=== PATIENT | male | born 1960 | race Caucasian/White ===

== ENCOUNTER 2021-12-26 10:00 | Outpatient (CLI) | payer BC, SELFPAY ==
--- NOTE | 2021-12-26 10:15 | CRLHL7_ITS ---
For Patients: As a result of the Century Cures Act, medical imaging exams and procedure reports are released immediately into your electronic medical record. You may view this report before your referring provider. If you have questions, please contact your health care provider. INDICATION : Nausea and vomiting. TECHNIQUE : Biphasic upper GI with single and double-contrast FINDINGS : Diminished primary stripping wave with tertiary contractions. Small sliding-type hiatal hernia. Gastroesophageal junction appears normal. Visualized spontaneous gastroesophageal reflux. No visualized mass or stricture. Stomach and duodenal C-loop are normal. IMPRESSION : 1. Diminished primary stripping wave with tertiary contractions. 2. Gastroesophageal reflux. 3. Small sliding-type hiatal hernia. Dictated by Mark Turner MD @ 12/26/2021 11:12:57 AM (Electronically Signed)
== END 2021-12-26 10:01 | disposition home or self-care (01) ==
LOC: RAD 10:02
PROVIDERS: PCP Family Medicine; Visit Provider Internal Medicine Gastroenterology
DX: R11.2 Nausea with vomiting, unspecified (principal); K21.9 Gastro-esophageal reflux disease without esophagitis; K44.9 Diaphragmatic hernia without obstruction or gangrene
CPT/HCPCS: 74246

== ENCOUNTER 2022-07-21 16:42 | Outpatient (CLI) | payer BC, SELFPAY | END 2022-07-21 16:43 | disposition home or self-care (01) | LOC: AMB 07-22 10:06 | PROVIDERS: PCP Family Medicine; Visit Provider Family Medicine | DX: R41.82 Altered mental status, unspecified (principal) | CPT/HCPCS: A0425; A0426; A0427 ==

== ENCOUNTER 2022-07-21 17:24 | Emergency (ER) | payer BC, SELFPAY ==
[2022-07-21] VITALS (14 sets, daily range): BP systolic 97–128; BP diastolic 42–72; PULSE 106–119; RESP 20–42; TEMP 36.4; O2SAT 91–96; BMI 28.2
--- NOTE | 2022-07-21 17:35 | ED.GENADULT ---
HPI - General Adult General Time Seen by Provider: 17:30 Date Seen: 07/21/22 Chief complaint: Weakness Stated complaint: Dehydration Time Seen by Provider: 07/21/22 17:46 Source: patient, family, EMS, RN notes reviewed and old records reviewed Mode of arrival: EMS Limitations: altered mental status History of Present Illness HPI narrative: 62-year-old male who comes in today by EMS for weakness. Patient is normally alert and talkative, in the emergency department does not answer questions although does mumble in open his eyes, brother provides most of the history. Patient is in assisted living and communicates regularly with his brother. At the beginning of the week, patient said that he was having fevers and not feeling well. Patient's brother is not heard from him for couple of days, went to check on him today and found him lethargic with dry cracked lips. Patient lives in assisted living and nursing there reported the patient was last checked on Friday. Patient is not able to provide any other history. It sounds like there is a history of hematuria and BPH. Related Data Allergies Allergy/AdvReac Type Severity Reaction Status Date / Time No Known Drug Allergies Allergy Verified 07/21/22 17:25 PFSH PFS Social History Smoking Status: Never smoker Do you use any of these nicotine containing products: None Second hand tobacco smoke exposure: No How often do you have a drink containing alcohol: never How often do you have six or more drinks on one occasion: Never AUDIT-C Alcohol total score: 0 Non-prescribed substance use: denies use service: No Exam Narrative: Exam Narrative: General: Well-developed and well-nourished, no acute distress Head: Atraumatic and normocephalic Eyes: Pupils are equal reactive, extraocular motions intact, conjunctiva clear ENT: External nose and ears are normal, posterior pharynx without erythema or exudate Neck: No midline cervical tenderness, full spontaneous range of motion the neck, trachea midline, no adenopathy Heart: Tachycardic but regular no murmurs or thrills Lungs: Clear to auscultation bilaterally without wheezes or crackles Abdomen: Soft, nontender, distended with active bowel sounds Musculoskeletal: No tenderness, deformity, or edema Neurologic: Awake, alert, answers yes no questions, follows commands and moves all extremities Psych: Mood and affect are appropriate Skin: No rashes Const: Vital Signs, click to edit/add: Vital Signs - 24 hr 07/21/22 17:25 07/21/22 18:01 07/21/22 18:05 Temperature 97.5 F L Pulse Rate 114 H 119 H Pulse Rate [Pulse Oximeter] 118 H Respiratory Rate 42 H Blood Pressure Blood Pressure [Le ft Upper Arm] 97/42 L Pulse Oximetry 95 96 96 Oxygen Delivery Me thod Room Air 07/21/22 18:13 07/21/22 18:58 07/21/22 18:59 Temperature Pulse Rate 118 H 110 H Pulse Rate [Pulse Oximeter] Respiratory Rate Blood Pressure 111/64 120/70 Blood Pressure [Le ft Upper Arm] Pulse Oximetry 96 94 Oxygen Delivery Me thod 07/21/22 19:00 07/21/22 19:21 07/21/22 19:41 Temperature Pulse Rate 110 H Pulse Rate [Pulse Oximeter] Respiratory Rate 28 H Blood Pressure 121/71 111/61 Blood Pressure [Le ft Upper Arm] Pulse Oximetry 94 Oxygen Delivery Me thod 07/21/22 19:54 07/21/22 20:00 07/21/22 20:01 Temperature Pulse Rate 109 H 110 H 111 H Pulse Rate [Pulse Oximeter] Respiratory Rate Blood Pressure 115/65 Blood Pressure [Le ft Upper Arm] Pulse Oximetry 95 96 94 Oxygen Delivery Me thod 07/21/22 20:24 Temperature Pulse Rate 106 H Pulse Rate [Pulse Oximeter] Respiratory Rate Blood Pressure 121/69 Blood Pressure [Le ft Upper Arm] Pulse Oximetry 95 Oxygen Delivery Me thod Course Course Hospital Course: Patient seen and examined, prior records reviewed. Patient presents by EMS for weakness, reported fevers. On exam here, tachycardic and hypotensive, afebrile. Small abrasion on the right forehead, head CT is ordered although no definite fall and looks like this may be to to patient laying on the right side. Abdominal distension but no tenderness or guarding. No rashes, no joint swelling. Concern for sepsis of unknowns source, given history of BPH urine is a strong possibility. Cannot exclude COVID infection or pneumonia, other intra-abdominal source of infection possible though no tenderness. IV fluid bolus and Zosyn are initiated. Chest x-ray ordered. Consider CT scan abdomen and pelvis if no source of infection is found based on initial testing. Head CT ordered due to altered mentation. Reevaluation(s) Reevaluation #1: Labs so far independently interpreted by me demonstrates elevated lactate, mild hypocalcemia, elevated AST and ALT with normal bilirubin and normal alkaline phosphatase. Remaining labs are pending, CT scan is pending. Time: 18:07 Reevaluation #2: Blood pressure improved but patient does remain tachycardic. Labs independently interpreted by me demonstrate elevated white blood cell count, low platelets. These both may be related to infection or sepsis, however cannot exclude hematologic malignancy. CT scan of the chest independently interpreted by me demonstrates atelectasis but no acute infiltrates, no hemothorax or pneumothorax. CT scan of the abdomen and pelvis and Bentyl interpreted by me demonstrates some areas of infarction of the spleen, also bladder wall thickening and prostatic enlargement. Time: 19:14 Reevaluation #3: Radiology interpretation of head CT demonstrates small hyperdensity of the left superior frontal robe, cortical lesion versus subarachnoid hemorrhage as well as a low-density lesion in the right cerebral hemisphere likely representing subacute infarct. Time: 19:52 Additional Reevaluation(s): 20:[address] Laboy, hospitalist. Recommends transfer due to possible need for complicated anticoagulation with intracranial bleed plus acute infarcts (brain and spleen). 20:[address] Gifford, neurology at [facility]. Recommends consultation with Neurosurgery. 21:[address] Arana, neurosurgery at [facility] who recommends patient be transferred to Neuro ICU. Care discussed with Dr. Pedersen, bankruptcy paralegal who accepts the patient for transfer Updated patient and family. Vital Signs Vital signs: Initial Vital Signs Temperature 97.5 F L 07/21/22 17:25 Temperature Source Temporal Artery Scan 07/21/22 17:25 Pulse Rate 118 H 07/21/22 17:25 Pulse Rhythm 07/21/22 17:25 Respiratory Rate 42 H 07/21/22 17:25 Blood Pressure 97/42 L 07/21/22 17:25 Blood Pressure Mean 60 07/21/22 17:25 Blood Pressure Position Supine 07/21/22 17:25 Pulse Oximetry 95 07/21/22 17:25 Oxygen Delivery Method 07/21/22 17:25 Vital Signs Temperature 97.5 F L 07/21/22 17:25 Pulse Rate 118 H 07/21/22 17:25 Respiratory Rate 42 H 07/21/22 17:25 Blood Pressure 97/42 L 07/21/22 17:25 Pulse Oximetry 95 07/21/22 17:25 Oxygen Delivery Method 07/21/22 17:25 Temperature 97.5 F L 07/21/22 17:25 Pulse Rate 106 H 07/21/22 20:24 Respiratory Rate 28 H 07/21/22 19:21 Blood Pressure 121/69 07/21/22 20:24 Pulse Oximetry 95 07/21/22 20:24 Oxygen Delivery Method 07/21/22 17:25 Medical Decision Making Lab Data Labs: Lab Results 07/21/22 07/21/22 07/21/22 Range/Units 17:28 17:28 17:28 WBC 29.31 H* (4.50-11.00) K/uL RBC 5.47 (4.30-5.90) m/uL Hgb 15.0 (13.5-17.5) gm/dL Hct 45.0 (37.0-53.0) % MCV 82 (80-100) fL MCH 27 (26-34) pg MCHC 33 (32-36) gm/dL RDW Coeff of Macie 14.1 (11.5-15.5) % Plt Count 88 L (140-440) K/uL Neut % (Auto) 88.5 H (42.0-72.0) % Lymph % (Auto) 2.1 L (20-44) % [place] % (Auto) 5.6 (0.0-11.0) % Eos % (Auto) 0.0 (0.0-7.0) % Baso % (Auto) 0.1 (0.0-3.0) % Neut # (Auto) 25.90 H (1.7-7.0) K/uL Lymph # (Auto) 0.60 L (0.90-2.90) K/uL [place] # (Auto) 1.60 H (0.00-0.90) K/UL Eos # (Auto) 0.00 (0.00-0.50) K/uL Baso # (Auto) 0.00 (0.00-0.30) K/uL VBG pH (7.32-7.43) VBG pCO2 (40-50) mmHG VBG pO2 (25-47) mmHG VBG HCO3 (21-28) mmol/L Sodium 133 L (135-149) mmol/L Potassium 4.0 (3.6-5.1) mmol/L Chloride 103 (96-114) mmol/L Carbon Dioxide 21 (20-32) mmol/L BUN 34 H (7-30) mg/dL Creatinine 1.0 (0.5-1.5) mg/dL Estimated Creat Clear 70.00 Estimated GFR 86 ml/min Glucose 124 H (60-115) mg/dL Lactate 2.8 H (0.5-1.9) mmol/L Calcium 7.9 L (8.4-10.6) mg/dL Total Bilirubin 1.5 (0.1-1.5) mg/dL Direct Bilirubin 0.3 (0.0-0.5) mg/dL AST 93 H (12-35) U/L ALT 53 H (4-50) U/L Alkaline Phosphatase 102 (40-150) U/L Total Creatine Kinase (54-186) U/L Total Protein 7.1 (6.0-8.3) g/dL Albumin 3.2 L (3.3-5.0) g/dL Lipase 232 (23-300) U/L Urine Color (Yellow) Urine Appearance (Clear) Urine pH (5.0-8.5) Ur Specific [place] (1.000-1.030) Urine Protein (Negative) Urine Glucose (UA) (Negative) Urine Ketones (Negative) Urine Blood (Negative) Urine Nitrite (Negative) Urine Bilirubin (Negative) Urine Urobilinogen (0.2-1.0) Ur Leukocyte Esterase (Negative) Urine RBC (0-2) Urine WBC (0-5) Ur Squamous Epith Cells (None-Few) Urine Bacteria (None) SARS-CoV-2 (PCR) (Negative) Influenza Type A (PCR) (Negative) Influenza Type B (PCR) (Negative) 07/21/22 07/21/22 07/21/22 Range/Units 17:28 17:34 17:39 WBC (4.50-11.00) K/uL RBC (4.30-5.90) m/uL Hgb (13.5-17.5) gm/dL Hct (37.0-53.0) % MCV (80-100) fL MCH (26-34) pg MCHC (32-36) gm/dL RDW Coeff of Macie (11.5-15.5) % Plt Count (140-440) K/uL Neut % (Auto) (42.0-72.0) % Lymph % (Auto) (20-44) % [place] % (Auto) (0.0-11.0) % Eos % (Auto) (0.0-7.0) % Baso % (Auto) (0.0-3.0) % Neut # (Auto) (1.7-7.0) K/uL Lymph # (Auto) (0.90-2.90) K/uL [place] # (Auto) (0.00-0.90) K/UL Eos # (Auto) (0.00-0.50) K/uL Baso # (Auto) (0.00-0.30) K/uL VBG pH 7.413 (7.32-7.43) VBG pCO2 36 L (40-50) mmHG VBG pO2 29.1 (25-47) mmHG VBG HCO3 23 (21-28) mmol/L Sodium (135-149) mmol/L Potassium (3.6-5.1) mmol/L Chloride (96-114) mmol/L Carbon Dioxide (20-32) mmol/L BUN (7-30) mg/dL Creatinine (0.5-1.5) mg/dL Estimated Creat Clear Estimated GFR ml/min Glucose (60-115) mg/dL Lactate (0.5-1.9) mmol/L Calcium (8.4-10.6) mg/dL Total Bilirubin (0.1-1.5) mg/dL Direct Bilirubin (0.0-0.5) mg/dL AST (12-35) U/L ALT (4-50) U/L Alkaline Phosphatase (40-150) U/L Total Creatine Kinase 197 H (54-186) U/L Total Protein (6.0-8.3) g/dL Albumin (3.3-5.0) g/dL Lipase (23-300) U/L Urine Color (Yellow) Urine Appearance (Clear) Urine pH (5.0-8.5) Ur Specific [place] (1.000-1.030) Urine Protein (Negative) Urine Glucose (UA) (Negative) Urine Ketones (Negative) Urine Blood (Negative) Urine Nitrite (Negative) Urine Bilirubin (Negative) Urine Urobilinogen (0.2-1.0) Ur Leukocyte Esterase (Negative) Urine RBC (0-2) Urine WBC (0-5) Ur Squamous Epith Cells (None-Few) Urine Bacteria (None) SARS-CoV-2 (PCR) Negative SARS-CoV-2 (Negative) Influenza Type A (PCR) Negative PCR FLU A (Negative) Influenza Type B (PCR) Negative PCR FLU B (Negative) 07/21/22 Range/Units 19:50 WBC (4.50-11.00) K/uL RBC (4.30-5.90) m/uL Hgb (13.5-17.5) gm/dL Hct (37.0-53.0) % MCV (80-100) fL MCH (26-34) pg MCHC (32-36) gm/dL RDW Coeff of Macie (11.5-15.5) % Plt Count (140-440) K/uL Neut % (Auto) (42.0-72.0) % Lymph % (Auto) (20-44) % [place] % (Auto) (0.0-11.0) % Eos % (Auto) (0.0-7.0) % Baso % (Auto) (0.0-3.0) % Neut # (Auto) (1.7-7.0) K/uL Lymph # (Auto) (0.90-2.90) K/uL [place] # (Auto) (0.00-0.90) K/UL Eos # (Auto) (0.00-0.50) K/uL Baso # (Auto) (0.00-0.30) K/uL VBG pH (7.32-7.43) VBG pCO2 (40-50) mmHG VBG pO2 (25-47) mmHG VBG HCO3 (21-28) mmol/L Sodium (135-149) mmol/L Potassium (3.6-5.1) mmol/L Chloride (96-114) mmol/L Carbon Dioxide (20-32) mmol/L BUN (7-30) mg/dL Creatinine (0.5-1.5) mg/dL Estimated Creat Clear Estimated GFR ml/min Glucose (60-115) mg/dL Lactate (0.5-1.9) mmol/L Calcium (8.4-10.6) mg/dL Total Bilirubin (0.1-1.5) mg/dL Direct Bilirubin (0.0-0.5) mg/dL AST (12-35) U/L ALT (4-50) U/L Alkaline Phosphatase (40-150) U/L Total Creatine Kinase (54-186) U/L Total Protein (6.0-8.3) g/dL Albumin (3.3-5.0) g/dL Lipase (23-300) U/L Urine Color Yellow (Yellow) Urine Appearance Clear (Clear) Urine pH 5.5 (5.0-8.5) Ur Specific [place] 1.010 (1.000-1.030) Urine Protein Negative (Negative) Urine Glucose (UA) Negative (Negative) Urine Ketones Negative (Negative) Urine Blood 3+ A (Negative) Urine Nitrite Negative (Negative) Urine Bilirubin Negative (Negative) Urine Urobilinogen 0.2 (0.2-1.0) Ur Leukocyte Esterase Negative (Negative) Urine RBC 5-10 A (0-2) Urine WBC 2-5 (0-5) Ur Squamous Epith Cells None (None-Few) Urine Bacteria None (None) SARS-CoV-2 (PCR) (Negative) Influenza Type A (PCR) (Negative) Influenza Type B (PCR) (Negative) Imaging Data CT Chest/Ab/Pelvis: Attestation: I have reviewed the pertinent imaging results. Radiologist's impression: IMPRESSION: 1. Mild bilateral ground-glass opacities are of uncertain significance. This may represent sequela of motion artifact/subsegmental atelectasis or infectious/inflammatory change in the appropriate clinical setting. 2. New multifocal splenic infarction. 3. Prostatomegaly and bladder wall thickening, as before. 4. Mild left pelvic lymphadenopathy is unchanged. CT scan - head: Attestation: I have reviewed the pertinent imaging results. Radiologist's impression: IMPRESSION: 1. Tiny hyperdensity along the cortex of the superior left frontal lobe, cortically based lesion versus tiny amount of subarachnoid hemorrhage. Follow-up CT in several hours versus MRI recommended. 2. Low-density lesion in the right cerebellar hemisphere. Suspect subacute infarct. This could also be evaluated with MRI. ECG Data Attestation: I personally reviewed and interpreted this ECG as follows: Prior ECG tracings: not available for review Interpretation: Independently interpreted by me performed at 5:40 p.m. demonstrates sinus tachycardia rate 117, nonspecific ST changes, no acute ischemic changes, normal axis, normal intervals, QTC 446, HI 160. No prior for comparison. Critical Care Time Critical Care Time Critical Care Time: Yes (Sepsis, multiple fluid boluses and antibiotics) Attestation: The patient required my highest level preparedness to intervene emergently and I personally spent this critical care time directly and personally managing the patient. This critical care time included: Obtaining a history; Examining the patient; Pulse oximetry; Ordering and reviewing of studies; Arranging urgent treatment with development of a management plan; Evaluation of patients response to treatment; Frequent reassessment discussions with other providers. This critical care time was performed to assess and manage the high probability of imminent life-threatening deterioration that could result in multiorgan failure. It was exclusive of separate billable procedures and treating other patients and teaching time. Total Critical Care Time in Minutes: 200 Discharge Plan Discharge Clinical Impression: Sepsis, Splenic infarction, CVA (cerebral vascular accident) Patient Disposition: [facility] Activity Level: Activity as Tolerated Stand Alone Forms: Appticles Info Instructions
--- NOTE | 2022-07-21 17:39 | CRLHL7_ITS ---
For Patients: As a result of the Century Cures Act, medical imaging exams and procedure reports are released immediately into your electronic medical record. You may view this report before your referring provider. If you have questions, please contact your health care provider. INDICATION: Altered mental status, sepsis TECHNIQUE: Head CT without contrast. COMPARISON: None FINDINGS: CSF spaces: Within normal limits for age. Brain parenchyma and extra-axial spaces: 20 mm low-density lesion in the right cerebellar hemisphere image 27 series 2 and image 70 series 9. Subtle 7 mm cortical hyperdensity in the superior left frontal lobe image 47 series 2 and image 41 series 9. It is also possible this is a tiny amount of subarachnoid hemorrhage. Skull base and calvarium: The visualized paranasal sinuses and mastoid air cells demonstrate no acute or significant findings. The visualized orbits are grossly unremarkable. No skull fractures. IMPRESSION: 1. Tiny hyperdensity along the cortex of the superior left frontal lobe, cortically based lesion versus tiny amount of subarachnoid hemorrhage. Follow-up CT in several hours versus MRI recommended. 2. Low-density lesion in the right cerebellar hemisphere. Suspect subacute infarct. This could also be evaluated with MRI. Please note that all CT scans at this facility use dose modulation, iterative reconstruction, and/or weight-based dosing when appropriate to reduce radiation dose to as low as reasonably achievable. Dictated by Alonso Mehta MD @ 07/21/2022 7:50:18 PM (Electronically Signed)
[2022-07-21] MEDS: 0.9 % SODIUM CHLORIDE 1000 ml 1,000 ML IV ×2 (17:40→19:55)
[2022-07-21 17:44] LABS: Lactate* 2.8 mmol/L (0.5-1.9)
[2022-07-21 17:47] LABS: Basophils Percent Auto 0.1 % (0.0-3.0); Immature Granulocytes Pct Auto 3.7 %; Lymphocytes Percent Auto 2.1 % (20-44); Mean Corpuscular HGB Conc 33 gm/dL (32-36); Mean Corpuscular Hemoglobin 27 pg (26-34); Mean Corpuscular Volume 82 fL (80-100); Monocytes Percent Auto 5.6 % (0.0-11.0); Neutrophils Percent Auto 88.5 % (42.0-72.0); Platelet Count* 88 K/uL (140-440); RDW Coefficient of Variation % 14.1 % (11.5-15.5); Red Blood Count 5.47 m/uL (4.30-5.90)
[2022-07-21 17:55] LABS: Chloride* 103 mmol/L (96-114)
[2022-07-21 17:56] LABS: Albumin* 3.2 g/dL (3.3-5.0); Sodium* 133 mmol/L (135-149)
[2022-07-21 17:58] LABS: Carbon Dioxide* 21 mmol/L (20-32); Estimated Glomerular Filt Rate 86 ml/min
[2022-07-21 17:59] LABS: Alanine Aminotransferase* 53 U/L (4-50); Alkaline Phosphatase* 102 U/L (40-150); Aspartate Amino Transferase* 93 U/L (12-35); Bilirubin Direct* 0.3 mg/dL (0.0-0.5); Bilirubin Total* 1.5 mg/dL (0.1-1.5); Blood Urea Nitrogen* 34 mg/dL (7-30); Calcium* 7.9 mg/dL (8.4-10.6); Glucose* 124 mg/dL (60-115); Lipase* 232 U/L (23-300); Total Protein* 7.1 g/dL (6.0-8.3)
--- NOTE | 2022-07-21 18:03 | CRLHL7_ITS ---
For Patients: As a result of the Century Cures Act, medical imaging exams and procedure reports are released immediately into your electronic medical record. You may view this report before your referring provider. If you have questions, please contact your health care provider. INDICATION: Altered mental status. Sepsis. TECHNIQUE: CT chest, abdomen and pelvis acquired with 85 cc of Isovue 370 IV contrast. COMPARISON: CT abdomen and pelvis 07/17/2019. FINDINGS: CHEST: Cardiovascular structures: Heart size is normal. Thoracic aorta and main pulmonary artery are normal in caliber. Mediastinum and max: No pathologic lymphadenopathy. Small hiatal hernia. Lungs: No pneumothorax. Central airways are patent. Mild motion artifact with mild bilateral ground-glass opacities. Lungs are otherwise clear. Pleura and pericardium: No pleural or pericardial effusions. Chest wall and axilla: Unremarkable. ABDOMEN AND PELVIS: Liver: Stable left hepatic lobe cyst. Spleen: Multifocal wedge shaped low-attenuation foci in the spleen consistent with infarction. No perisplenic fluid collection. Pancreas: Unremarkable. Gallbladder and bile ducts: Unremarkable. Kidneys: Contrast material in the renal collecting systems degrades evaluation for urolithiasis. Low-density foci most consistent with incidental simple cysts are unchanged. Bilateral kidneys are otherwise unremarkable. Adrenal glands: Unremarkable. GI tract: No bowel obstruction or focal inflammatory change involving the GI tract. Vascular structures: No abdominal aortic aneurysm. Lymph nodes: Mild left pelvic/internal iliac lymphadenopathy, for example as seen on image 241 of series 3 is unchanged. No progressive lymphadenopathy. Pelvic Organs: Circumferential bladder wall thickening is similar in appearance. Prostatomegaly, as before. Bones: Degenerative changes of the spine and pelvis. No acute or suspicious osseous abnormality. IMPRESSION: 1. Mild bilateral ground-glass opacities are of uncertain significance. This may represent sequela of motion artifact/subsegmental atelectasis or infectious/inflammatory change in the appropriate clinical setting. 2. New multifocal splenic infarction. 3. Prostatomegaly and bladder wall thickening, as before. 4. Mild left pelvic lymphadenopathy is unchanged. Dictated by Catracho Hernandez MD @ 07/21/2022 8:00:57 PM Please note that all CT scans at this facility use dose modulation, iterative reconstruction, and/or weight-based dosing when appropriate to reduce radiation dose to as low as reasonably achievable. Dictated by: Catracho Hernandez MD @ 07/21/2022 20:01:18 (Electronically Signed)
[2022-07-21 18:08] LABS: White Blood Count* 29.31 K/uL (4.50-11.00)
[2022-07-21 18:16] LABS: Creatine Kinase* 197 U/L (54-186)
[2022-07-21] MEDS: PIPERACILLIN/TAZOBACTAM 3.375 GM in 0.9 % SODIUM CHLORIDE Mini-bag 100 ML IVPB (19:04)
[2022-07-21 19:40] LABS: HCO3 VBG 23 mmol/L (21-28); PCO2 VBG 36 mmHG (40-50); PO2 VBG 29.1 mmHG (25-47); pH VBG 7.413 (7.32-7.43)
[2022-07-21 19:45] LABS: PCR FLU A Negative PCR FLU A (Negative); PCR FLU B Negative PCR FLU B (Negative); SARS PCR* Negative SARS-CoV-2 (Negative)
[2022-07-21 19:47] LABS: Slide Review Reflex No
[2022-07-21 20:03] LABS: Appearance Urine Clear (Clear); Bilirubin Urine Negative (Negative); Blood Urine 3+ (Negative); Color Urine Yellow (Yellow); Glucose Urine Negative (Negative); Ketones Urine Negative (Negative); Leukocyte Esterase Urine Negative (Negative); Nitrite Urine Negative (Negative); Protein Urine Negative (Negative); Urobilinogen Urine 0.2 (0.2-1.0); pH Urine 5.5 (5.0-8.5)
--- NOTE | 2022-07-21 20:07 | ED.NURSE ---
catheter placed, no complications, 600cc output on insertion- urine sent to lab.
--- NOTE | 2022-07-21 20:17 | CRLHL7_ITS ---
For Patients: As a result of the Century Cures Act, medical imaging exams and procedure reports are released immediately into your electronic medical record. You may view this report before your referring provider. If you have questions, please contact your health care provider. INDICATION: Calf pain. Splenic infarct. Acute CVA. TECHNIQUE: Ultrasound venous duplex bilateral lower extremity. Compression venous exam was performed using yusuf-scale, color Doppler, and spectral Doppler analysis. COMPARISON: None. FINDINGS: Deep veins: Sonographic imaging demonstrates the right common femoral, deep femoral, superficial femoral, popliteal, posterior tibial and the contralateral right common femoral veins to be fully compressible with normal color Doppler blood flow. Superficial veins: Greater saphenous vein is fully compressible. No popliteal cyst. IMPRESSION: Normal bilateral lower extremity venous ultrasound, no sign of deep venous thrombosis. Dictated by Angel Roe MD @ 07/21/2022 9:37:40 PM (Electronically Signed)
--- NOTE | 2022-07-21 20:21 | ED.NURSE ---
report off to Yu LEWIS
--- NOTE | 2022-07-21 21:51 | ED.NURSE ---
This nurse called report to [facility] nurse, pt transferring to Neuro ICU Room 2888. All paperwork in triplicate, called dispatch, ride paged out to hospital. Brother of pt informed of visiting hours at [facility]. Pt aware of plan of care as well.
== END 2022-07-21 22:10 | disposition short-term general hospital (02) ==
PROVIDERS: Emergency Provider Family Medicine; PCP Family Medicine
DX: D73.5 Infarction of spleen (principal); A41.9 Sepsis, unspecified organism; I63.9 Cerebral infarction, unspecified
CPT/HCPCS: 36415; 70450; 71260; 74177; 80048; 80076; 81001; 82550; 82803; 83605; 83690; 85025; 87040; 87186; 87631; 93005; 93970; 96365; 96366; 99285; 99291; 99292; J2543; J3370; J7030; J7120; Q9967

== ENCOUNTER 2022-07-21 22:00 | Outpatient (CLI) | payer BC, SELFPAY | END 2022-07-21 22:01 | disposition home or self-care (01) | LOC: AMB 07-23 10:05 | PROVIDERS: PCP Family Medicine; Visit Provider Family Medicine | DX: A41.9 Sepsis, unspecified organism (principal); S06.30AA Unspecified focal traumatic brain injury with loss of consciousness status unknown, initial encounter; R53.1 Weakness | CPT/HCPCS: A0425; A0426; A0427 ==

== ENCOUNTER 2023-10-05 17:37 | Emergency (ER) | payer BC, SELFPAY ==
[2023-10-05] VITALS (8 sets, daily range): BP systolic 118–138; BP diastolic 66–75; PULSE 85–98; RESP 14–18; TEMP 36.7–37; O2SAT 93–97; BMI 30.2
--- NOTE | 2023-10-05 18:52 | CT_ITS ---
Patient: SANTHOSH AARON Facility:?[facility] Patient ID:?[id number] Site Patient ID:?[id number]. Site :?[id number] Study:?CT-Chest W/ 75CC ISOVUE 370-10/05/2023 7:59:23 PM Ordering Physician:SIMÓN Final Report: INDICATION: Lower sternal skin abscess, recent extraction of thoracic wire. TECHNIQUE: CT chest was acquired with 75 cc Isovue 370 IV contrast. COMPARISON: CT chest, abdomen, and pelvis 07/21/2022. FINDINGS: Lungs and pleura: No suspicious nodules or infiltrates. No pleural effusions, pleural thickening, or pneumothorax. Heart and vasculature: Heart size is normal. Thoracic aorta and pulmonary artery are normal in caliber.Median sternotomy with mitral valve replacement. No pericardial effusion. Lymph nodes/mediastinum: No mediastinal, hilar, or axillary adenopathy. Chest wall: Non-rim enhancing fluid and inflammatory changes within the skin and subcutaneous fat overlying the lower sternum. There is a focal fusiform fluid collection within the skin, compatible with an abscess measuring 2.2 x 1.3 x 4.2 cm with adjacent skin thickening. Non-loculated fluid extends down to the skin sternum without evidence for extension into the anterior mediastinum. Epicardial pacing wires. Upper abdomen: Hepatic steatosis. Bones: Unremarkable for age. IMPRESSION: 1. Small, 2.2 x 1.3 x 4.2 cm, skin abscess with underlying phlegmonous change in the subcutaneous fat overlying and extending down to the lower sternum the setting of prior median sternotomy. No evidence for mediastinal extension; however, osteomyelitis can not be excluded on this exam. 2. Hepatic steatosis. Please note that all CT scans at this facility use dose modulation, iterative reconstruction, and/or weight-based dosing when appropriate to reduce radiation dose to as low as reasonably achievable. Dictated by Giovanni Moyer MD @ 10/05/2023 8:26:33 PM Signed by:?Giovanni Moyer MD @10/05/2023 8:26:33 PM (Electronic Signature)
--- OUTSIDE RECORDS SUMMARY | 2023-10-05 19:05 | XMS_ITS | Data Portability ---
Author Name Unknown Address [address] [place] [address] Phone [phone] Organization [facility] Address [address] [place] [address] Care Team Providers Care Load Dispatcher Name Role Phone SANTHOSH DUVAL Primary Care Provider [phone] Assessment No assessment recorded. Plan of Treatment Reminders Order Date Submit Date Provider Last Modified By Organization Details Last Modified Time Details Appointments None recorded. Lab urinalysis , dipstick 2021 022 [email or web address] 1 Not available 12:29:20 Referral None recorded. Procedures None recorded. Surgeries None recorded. Imaging None recorded. Medication Orders None recorded. Patient TargetsNo targets recorded. Patient InstructionsNo instructions recorded. Reason for Referral None Reported. Results Created Date Observation Date Name Description Value Unit Range Abnormal Flag LastModifiedBy Organization Detail LastModifiedTime 11/17/19 22 11/16/2021 urina lysis , dipst ick Color-Status Yellow Not Available [facility] [address], [place], [address], 11/16/2021 12:16:25 11/17/19 22 11/16/2021 urina lysis , dipst ick Clarity-Stat us Clear Not Available [facility] [address], [place], [address], 11/16/2021 12:16:25 11/17/19 22 11/16/2021 urina lysis , dipst ick Glucose-Stat us Negati ve Not Available [facility] [address], [place], [address], 11/16/2021 12:16:25 11/17/19 22 11/16/2021 urina lysis , dipst ick Bilirubin-St atus Negati ve Not Available [facility] [address], [place], [address], 11/16/2021 12:16:25 11/17/19 22 11/16/2021 urina lysis , dipst ick Ketones-Stat us Negati ve Not Available [facility] [address], [place], [address], 11/16/2021 12:16:25 11/17/19 22 11/16/2021 urina lysis , dipst ick Sp Dorris-Stat us 1.020 Not Available [facility] [address], [place], [address], 11/16/2021 12:16:25 11/17/19 22 11/16/2021 urina lysis , dipst ick pH-Status 6.0 Not Available [facility] [address], [place], [address], 11/16/2021 12:16:25 11/17/19 22 11/16/2021 urina lysis , dipst ick Urobilinogen -Status 0.2 Not Available [facility] [address], [place], [address], 11/16/2021 12:16:25 11/17/19 22 11/16/2021 urina lysis , dipst ick Nitrates-Sta tus negati ve Not Available [facility] [address], [place], [address], 11/16/2021 12:16:25 11/17/19 22 11/16/2021 urina lysis , dipst ick Blood-Status Negati ve Not Available [facility] [address], [place], [address], 11/16/2021 12:16:25 11/17/19 22 11/16/2021 urina lysis , dipst ick Leuko-Status Negati ve Not Available [facility] [address], [place], [address], 11/16/2021 12:16:25 11/17/19 22 11/16/2021 urina lysis , dipst ick Specimen Type Voided Not Available [facility] [address], [place], [address], 11/16/2021 12:16:25 08/24/19 21 08/21/2020 measu remen t of post- voidi ng resid ual urine and/o r bladd er capac ity (PROC ) No observ ation record ed. Not Available 11/16/2021 13:11:52 09/07/19 22 09/03/2021 measu remen t of post- voidi ng resid ual urine and/o r bladd er capac ity (PROC ) No observ ation record ed. Not Available 11/16/2021 13:11:51 11/14/19 22 10/26/2021 CT, abdom en + pelvi s, w/o contr ast No observ ation record ed. Not Available 11/16/2021 13:11:51 Result Notes None recorded. Procedures Surgical History Date Name Laterality Status Provider Name and Address Organization Details Recorded Time tonsillectomy completed ANNA Hernandez - [facility] 11/16/2021 12:25:28 Imaging Results Imaging Date Name Status LastModified by Organ [facility] Details LastModified Time 08/21/2020 measurement of post-voiding residual urine and/or bladder capacity (PROC) completed [email or web address] Information not available 11/16/2021 13:11:52 09/03/2021 measurement of post-voiding residual urine and/or bladder capacity (PROC) completed [email or web address] Information not available 11/16/2021 13:11:51 10/26/2021 CT, abdomen + pelvis, w/o contrast completed Information not available 11/16/2021 13:11:51 Procedure Notes None recorded. Medical Equipment None Reported. Allergies No known drug allergies Medications Name Sig Start Date Stop Date Status Note LastModified by Organization Details LastModified Time cephalexin 500 mg capsule TAKE 1 CAPSULE (500 MG) BY MOUTH 2 TIMES DAILY FOR 7 DAYS. 11/16 completed Not Available Not Available Not Available paroxetine 30 mg tablet TAKE 2 TABLETS BY MOUTH EVERY MORNING active Not Available Not Available No t Available oxybutynin chloride ER 5 mg tablet,exte nded release 24 hr TAKE ONE TABLET BY MOUTH ONCE DAILY active Not Available Not Available No t Available clobetasol 0.05 % topical ointment APPLY TOPICALLY TO AFFECTED AREA(S) 2 TIMES DAILY. active Not Available Not Available No t Available finasteride 5 mg tablet TAKE ONE TABLET BY MOUTH EVERY MORNING active Not Available Not Available No t Available alfuzosin ER 10 mg tablet,exte nded release 24 hr TAKE 1 TABLET BY MOUTH ONCE DAILY WITH A MEAL. active Not Available Not Available No t Available Vitals Date Recorded Body height Body mass index (BMI) Body weight Provider Name and Address Organization Details Last Updated DateTime 11/16/2021 162.56 cm 31.1 kg/m2 20485.22 g ANNA Hernandez [facility] 11/16/2021 12:23:23 Social History Question Answer Notes LastModified by Organizat ion Details LastModified Time Tobacco Smoking Status Never Smoker ANNA Hernandez [facility] 11/16/2021 12:25:11 What Is Your Level Of Alcohol Consumption? None Information not available 11/16/2021 What Is Your Level Of Caffeine Consumption? Occasional Information not available 11/16/2021 What Was The Date Of Your Most Recent Tobacco Screening? 11/16/2021 Information not available 11/16/2021 Do You Use Any Illicit Or Recreational Drugs? No Information not available 11/16/2021 Has Tobacco Cessation Counseling Been Provided? No Information not available 11/16/2021 Do You Or Have You Ever Used Any Other Forms Of Tobacco Or Nicotine? No Information not available 11/16/2021 Sex: Male Functional Status None recorded. Mental Status None recorded. Family History Relationship Description Onset Age of this Age Resolved Age Notes Mother Family history of cancer leukemia Maternal Grandmother Family history of breast cancer Father Family history of diabetes mellitus Medical History Condition Response Sexually Transmitted Infection N Diabetes N Other Y Bleeding Disorder N High Blood Pressure N Kidney Stones N High Cholesterol N GERD/Acid Reflux Y Heart Disease N Cancer N Depression N Lung Disease N Past Encounters Encounter ID Performer Location Encounter Start Date Encounter Closed Date Diagnosis/Indication Diagnosis SNOMED-CT Code [id number] Julián Paulino MD [facility] [address] [place] [address] 11/16/2021 11:53:22 11/19/2021 13:00:23 Blood in urine 61110054 Recurrent urinary tract infection [id number] Large prostate [id number] Health Concerns Section Related Observation LastModified by Organization Detai ls LastModified Time None Recorded Concern Status LastModified by Organization Details LastModified Time None Recorded Advance Directives Directive None Recorded Payers Encounter Date Sequence Insurance Name Policy Number Policy Shoemaker Covered Member ID Shoemaker Member ID Guarantor Name 11/16/2021 1 [place] - [place]MO[place] [id number] Santhosh Sara Philip [id number] Santhosh A Tamera Notes Date Note Type Note Provider Name and Address Organization Details Recorded Time 11/16/2021 text/html HPI Notes: Mr. Philip is a very pleasant 61-year-old gentleman who follows with my partner, Dr. Anton, down in our [place] office. Patient has a long history of prostatomegaly, recurrent hematuria and recurrent urinary tract infections. Patient underwent a cystoscopy with clot evacuation in 2019. Over the course of the last few weeks patient developed another urinary tract infection and gross hematuria. Patient underwent a CT abdomen pelvis which noted some blood products within the bladder but otherwise no adverse pathology. Patient states that he was treated with an antibiotic which subsequently resolved his hematuria. Images from patient CT abdomen pelvis dated 10/26/2021 reviewed with patient and interpreted by me. Evidence of prostatic megaly and bladder wall thickening hyperdense material within the bladder lumen consistent with blood products. Benign-appearing cysts on the left renal unit but otherwise no upper tract abnormalities. Patient seen with his brother who provides some of the history. Julián Paulino MD [address], [place], [address], [facility] 11/16/2021 13:18:26
--- OUTSIDE RECORDS SUMMARY | 2023-10-05 19:05 | XMS_ITS | Clinical Summary ---
Author Name Unknown Organization [employer] [facility] Address [place], [place] [address] Care Team Providers Care Pathology Laboratory Technologist Name Role Phone Ajay Pink MD Primary Care Provider [phone] Dorothy Powell Unavailable Travis Lynch MD Unavailable Unavailable Allergies Active Allergy Reactions Criticality Noted Date Comments Cefazolin Rash 09/09/2022 Nafcillin Rash 09/09/2022 Also possible drug induced liver injury Medications Medication Sig Dispensed Refills Start Date End Date Status alfuzosin (UROXATRAL) 10 mg Sustained-Release tabletIndications: Benign prostatic hyperplasia with incomplete bladder emptying Take 1 Tablet (10 mg) by mouth once daily with a meal. 90 Tablet 3 01/16/2022 Active finasteride (PROSCAR) 5 mg tabletIndications: BPH without urinary obstruction Take 1 Tablet (5 mg) by mouth every morning. 90 Tablet 3 01/16/2022 Active oxybutynin XL (DITROPAN XL) 5 mg CR tabletIndications: Urinary urgency Take 1 Tablet (5 mg) by mouth once daily. 90 Tablet 3 01/16/2022 Active omeprazole (PRILOSEC) 20 mg Delayed-Release capsuleIndications :Gastroesophageal reflux disease, unspecified whether esophagitis present Take 1 Capsule (20 mg) by mouth once daily before a meal. Take 30-60 minutes before a meal/food once a day. 90 Capsule 3 05/19/2022 Active multivitamins-mine rals-lutein (Multivitamin 50 Plus) tab tablet Take 1 Tablet by mouth once daily. Active MAGNESIUM ORAL Take 1 Tablet by mouth once daily. Active CALCIUM ORAL Take 1 Tablet by mouth once daily. Active acetaminophen (TYLENOL) 325 mg tabletIndications: Pain Take 2 Tablets (650 mg) by mouth every 4 hours if needed for Pain or Temp>101.5F (38.6C). Max acetaminophen dose: 4000mg in 24 hrs. 0 09/10/2022 Active metoprolol tartrate (LOPRESSOR) 25 mg tabletIndications: HTN (hypertension) Take 1 Tablet (25 mg) by mouth two times daily. 0 09/10/2022 Active polyethylene glycol (MIRALAX; GLYCOLAX) 17 g per packet packetIndications: Constipation, unspecified constipation type Mix 17 g (1 Packet) in liquid then take by mouth once daily if needed for Constipation. 0 09/10/2022 Active torsemide (DEMADEX) 20 mg tabletIndications: Edema, unspecified type Take 1 Tablet (20 mg) by mouth once daily. 0 09/18/2022 Active warfarin (COUMADIN) 2 mg tabletIndications: S/P MVR (mitral valve replacement) 4 mg po on 09/18/2022, further dosing as per INR on 09/19/2022 0 09/18/2022 Active PARoxetine (PAXIL) 30 mg tabletIndications: Social anxiety disorder,Mixed obsessional thoughts and acts TAKE 2 TABLETS BY MOUTH EVERY MORNING 60 Tablet 11/05/2022 Active Active Problems Problem Noted Date Diagnosed Date Coag negative Staphylococcus bacteremia 08/19/19 23 Positive blood culture 08/18/2022 Fever 08/17/2022 At risk for healthcare associated infection 07/31 Shock liver 08/02/2022 Transaminitis 08/02/2022 At risk for infection 08/02/2022 S/P MVR (mitral valve replacement) 07/29/2022 Overview: MITRAL VALVE.[facility] MECHANICAL HEART VALVE SZ 27MM. REF: [id number]. SN:[id number]. IMPLANTED BY DR. 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 His PSA was 15 in 2012 and biopsy showed only inflammation. Screening for colon cancer 07/26/2018 Overview: He had a normal colonoscopy in 05/2015 in [place]. Next colonoscopy is due on 05/22/2025. Sensorineural hearing loss, bilateral 11/14/2017 Autism spectrum disorder 11/08/2017 Social anxiety disorder 10/13/2017 Mixed obsessional thoughts and acts 10/13/2017 BPH without urinary obstruction 10/13/2017 Seasonal allergic rhinitis due to pollen 018 Overview: Tree pollen. Acute embolic stroke On mechanically assisted ventilation Hemoptysis Massive hemoptysis Pneumomediastinum Pain ACP (advance care planning) Encounter for palliative care Resolved Problems Problem Noted Date Diagnosed Date Resolved Date Noise-induced hearing loss of both ears 10/13/2017 10/19/2019 Immunizations Name Administration Dates Next Due COVID-19 vaccine (iLive NTH[employer]ed [employer] 30mcg/0.3mL) 12YO+ PROMISE-SUCROSE PF, MDV 10/26/2021 COVID-19 vaccine (Eximia-xAdNTHosted Systems 30mcg/0.3mL) P F, MDV 10/07/2020,09/16/2020 Influenza RIV4 (Age 18+ Years) PRESERV FREE 07/03 Influenza, High-dose Quadrivalent Inactivated Tdap 08/16/2019 Family History Medical History Relation Name Comments Good Health Brother Diabetes type I Father Heart attack Father of this at 76 (smoker) Stroke Maternal Grandmother at 94 Heart Disease Mother s/p aortic norma ve replacement Leukemia Mother of this at age 80 Relation Name Status Comments Brother Father Maternal Grandmother Mother Social History Tobacco Use Types Packs/Day Years Used Date Smoking Tobacco: Never Smokeless Tobacco: Never Tobacco Cessation:Counseling Given: Yes Alcohol Use Standard Drinks/Week Comments No 0 (1 standard drink = 0.6 oz pur e alcohol) PHQ-2 Answer Date Recorded PHQ-2 TOTAL SCORE 0 01/16/2022 Social Connections Answer Date Recorded Frequency of Communication with Friends and Fami ly Not on file 10/31/2022 Financial Resource Strain Answer Date R ecorded Difficulty of Paying Living Expenses 3 10/26/2021 Difficulty of Paying Living Expenses Not on file 10/26/2021 Food Insecurity Answer Date Recorded Worried About Running Out of Food in the Last Ye ar 1 10/26/2021 Transportation Needs Answer Date Record ed Lack of Transportation (Medical) 1 10/26/2021 Housing Stability Answer Date Recorded Unable to Pay for Housing in the Last Year 1 10/26/2021 Sex and Gender Information Value Date Recorded Sex Assigned at Not on file Gender Identity Not on file Sexual Orientation Not on file Obstetrics History Last Filed Vital Signs Vital Sign Reading Time Taken Comments Blood Pressure 110/70 11/22/2022 2:03 PM CDT Pulse 73 11/22/2022 2:03 PM CDT Temperature 36.7 ??C (98 ??F) 09/18/2022 7:48 AM CDT Respiratory Rate 18 09/18/2022 7:48 AM CDT Oxygen Saturation 98% 11/22/2022 2:03 PM CDT Inhaled Oxygen Concentration - - Weight 71.5 kg (157 lb 9.6 oz) 11/22/2022 2:03 P M CDT Height 161.9 cm (5' 3.75) 11/22/2022 2:03 PM CD T Body Mass Index 27.26 11/22/2022 2:03 PM CDT Plan of Treatment Health Maintenance Due Date Last Done Comments Pneumococcal series for age 6-64 (1 of 2 - PCV) 1967 HIV for age 15-65 1976 Colonoscopy through age 75 2006 Zoster (shingles) series for age 50+ (1 of 2) 2011 Depression screening for age 12+ 01/16/2023 01/16/2022, 03/06/2021, 01/12/2020, Additional history exists COVID-19 vaccine series (2022-24 season) 2023 03/28/2022, 10/26/2021, 05/03/2021, Additional history exists BMI (ht and wt on same day) for age 18+ 11/23/2023 11/22/2022, 01/16/2022, 08/16/2019, Additional history exists Influenza for age 50-64 02/01/2024 07/21/2019 Lipids for age 45-75 07/22/2027 07/22/2022, 01/16/2022, 07/29/2018 Tetanus booster 08/15/2029 08/16/2019 Tdap Completed 08/16/2019 Hepatitis C screening for ag e 18-79 Completed 01/16/2022 Medical Devices Implanted Type Area Building Pressure Washer Device Identifier Shelf Expiration Date Model / Serial / Lot Valve Mitral 27mm [employer] - [id number] Implanted:Qty: 1 on 07/29/2022 by Jorge Parrish MD at [facility] N/A: Mitral Valve [facility] [employer] [facility] 04/17/2027 [id number] / [id number] / Procedures Procedure Name Priority Date/Time Associated Diagnosis Comments LIPID PANEL Early AM 07/22/2022 3:56 AM [employer] ANTI HCV Routine 01/16/2022 3:28 PM CDT Need for hepatitis C screening test from Last 3 Months or Most Recently Relevant to Health Maintenance Results * (ABNORMAL) Lipid Panel (07/22/2022 3:56 AM [employer]) CHOLESTEROL,TOTAL 97 mg/dL 023 4:47 AM [employer] [facility] Comment: Cholesterol, Total Reference Ranges Desirable <200 mg/dL Borderline 200-239 mg/dL High >=240 mg/dL TRIGLYCERIDES 297(H) <150 mg/dL 07/22/2022 4:47 AM [employer] [facility] HDL CHOLESTEROL 11(L) >40 mg/dL 4:47 AM [employer] [facility] NON-HDL CHOLESTEROL 86 <145 mg/dl 07/22/2022 4:47 AM [employer] [facility] CHOL/HDL RATIO 8.82(H) <4.50 07/22/2022 4:47 AM [employer] [facility] LDL CHOLESTEROL 27 <=130 mg/dL 07/22/2022 4:47 AM [employer] [facility] VLDL CHOLESTEROL 59 >30 mg/dL 07/22/19 4:47 AM [employer] [facility] PROVIDER ORDERED STATUS RANDOM 07/22/2022 4:47 AM [employer] [facility] Blood BLOOD SPECIMEN / Unknown Butterfly / Unknown 07/22/2022 3:56 AM [employer] 07/22/2022 4:11 AM [employer] Catracho Pedersen MD CHEMISTRY [facility] [address] [place] [address], * ANTI HCV (01/16/2022 3:28 PM CDT) Pathologist [facility] HEPATITIS C ANTIBODY Non-React rowdy Non-React rowdy 01/17/2022 2:29 AM CDT [facility] Comment:Antibodies to HCV no t detected; does not exclude the possibility of exposure to HCV. Blood BLOOD SPECIMEN / Unknown Venipuncture / Unknown 01/16/2022 3:28 PM CDT 01/16/2022 3:31 PM CDT Ajay Pink MD SEND OUTS [facility] [address] [place] [address], from Last 3 Months or Most Recently Relevant to Health Maintenance Advance Directives Documents on File Type Date Recorded Patient Manager Assembly Expl anation Healthcare Directive 10/16/2022 12:00 AM * Full Code (Latest Code Status on File) Date Activated Date Inactivated Comments 08/26/2022 3:44 PM 09/18/2022 2:11 PM With patient 's brother Question Answer Comments Code Status Discussion: Reviewed Preferences * Partial Code Date Activated Date Inactivated Comments 08/03/2022 2:21 PM 08/26/2022 3:44 PM Question Answer Comments Cardio Resuscitation: No Chest CompressionsNo De fibrillation/Cardioversion Ventilation: No Restrictions Drug Protocol: No Restrictions * Full Code Date Activated Date Inactivated Comments 07/22/2022 6:51 AM 08/03/2022 2:21 PM Question Answer Comments Code Status Discussion: Reviewed Preferences * Full Code Date Activated Date Inactivated Comments 07/21/2022 11:22 PM 07/22/2022 6:51 AM Question Answer Comments Code Status Discussion: Unable to Assess Preferences, Provider to review later Care Teams Pathology Laboratory Technologist Relationship Specialty Start Date End Date Ajay Pink MD [address] [place] [address] PCP - General Family Practice 10/06/17 Dorothy Powell AuD [address] [place] [address] Audiology 11/14/17 Travis Lynch MD [address] [place] [address] Family [facility] 11/22/22
[2023-10-05 19:10] LABS: Basophils Absolute Auto 0.07 K/uL (0.00-0.30); Basophils Percent Auto 0.7 % (0.0-3.0); Eosinophils Absolute Auto 0.26 K/uL (0.00-0.50); Eosinophils Percent Auto 2.7 % (0.0-7.0); Hematocrit 39.2 % (37.0-53.0); Hemoglobin* 12.8 gm/dL (13.5-17.5); Immature Granulocytes Abs Auto 0.18 K/uL (0.00-0.30); Immature Granulocytes Pct Auto 1.9 %; Lymphocytes Percent Auto 15.2 % (20-44); Mean Corpuscular HGB Conc 33 gm/dL (32-36); Mean Corpuscular Hemoglobin 27 pg (26-34); Mean Corpuscular Volume 84 fL (80-100); Monocytes Percent Auto 9.6 % (0.0-11.0); Neutrophils Absolute Auto 6.79 K/uL (1.7-7.0); Neutrophils Percent Auto 69.9 % (42.0-72.0); Platelet Count* 349 K/uL (140-440); RDW Coefficient of Variation % 14.4 % (11.5-15.5); Red Blood Count 4.68 m/uL (4.30-5.90); White Blood Count* 9.71 K/uL (4.50-11.00)
[2023-10-05 19:11] LABS: Lactate* 1.3 mmol/L (0.5-1.9)
[2023-10-05 19:14] LABS: Slide Review Reflex No
[2023-10-05 19:24] LABS: Chloride* 106 mmol/L (96-114); Sodium* 139 mmol/L (135-149)
[2023-10-05 19:25] LABS: Potassium* 4.3 mmol/L (3.6-5.1)
[2023-10-05 19:27] LABS: Est. Creatinine Clearance* 64.13; Estimated Glomerular Filt Rate 85 ml/min
[2023-10-05 19:28] LABS: Anion Gap 5 mEq/L (7-15); Blood Urea Nitrogen* 17 mg/dL (7-30); Calcium* 9.1 mg/dL (8.4-10.6); Carbon Dioxide* 28 mmol/L (20-32); Glucose* 107 mg/dL (60-115)
[2023-10-05 19:31] LABS: C Reactive Protein* 3.1 mg/dL (0.5-1.0)
[2023-10-05 19:35] LABS: Creatinine, Point-of-Care* 1.2 mg/dl (0.6-1.3)
--- NOTE | 2023-10-05 20:15 | ED.GENADULT ---
HPI - General Adult General Date Seen: 10/05/23 Chief complaint: Skin/Abscess/Foreign Body Stated complaint: Possible infected scar on chest Time Seen by Provider: 10/05/23 18:28 History of Present Illness HPI narrative: This is a pleasant 63-year-old male accompanied to the ER today by his brother with concern for an abscess and infection on his lower central cyst chest over the lower sternum. He has a complex past history dating back the past couple of years. 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 He underwent a mitral valve replacement at [facility] about a year ago. It sounds like his mitral valve surgery was complicated by postoperative infections of his chest tube drains and some of his hardware, he also had pancreatitis, acute renal injury requiring temporary renal replacement therapy, and liver failure. Most recent follow-up was with [facility] in October 2022. According to that note he had some skin irritation at his lower sternal border. This was apparently due to the temporary pacing wires that had been left in place during his hospitalization. It sounds like the pacing wires were shortened in clinic and the plan was to monitor and have him return if any signs of infection develop. According to his brother he has been doing well lately. He had a checkup at his a nursing facility on Friday at that point they noticed a small area of erythema on the anterior chest. His brother was with him and noticed a very small pink spot. In the intervening 2 days he is now has a roughly 2 x 3 cm area of fluid and fluctuance probably an abscess and fairly widespread area of erythema spreading across his anterior chest wall. Other than the signs of infection there he says he is feeling fine. No fevers. No body aches. No chills. No weakness. Related Data Home Medications Medication Instructions Recorded Confirmed clobetasol 0.05 % topical ointment topical 3XW 10/05/23 finasteride 5 mg tablet 5 mg PO DAILY 10/05/23 10/05/23 guaifenesin 600 mg tablet, 600 mg PO BID 10/05/23 10/05/23 extended release 12 hr (Mucus Relief ER) ketoconazole 2 % shampoo topical 2XW 10/05/23 magnesium oxide 400 mg (241.3 mg 400 mg PO DAILY 10/05/23 10/05/23 magnesium) tablet metoprolol tartrate 25 mg tablet 25 mg PO BID 10/05/23 10/05/23 omeprazole 20 mg capsule,delayed 20 mg PO DAILY 10/05/23 10/05/23 release oxybutynin chloride 5 mg 5 mg PO DAILY 10/05/23 10/05/23 tablet,extended release 24 hr paroxetine HCl 30 mg tablet 60 mg PO DAILY 10/05/23 10/05/23 polyethylene glycol 3350 17 17 g PO DAILY PRN constipation 10/05/23 10/05/23 gram/dose oral powder tamsulosin 0.4 mg capsule 0.4 mg PO DAILY 10/05/23 10/05/23 torsemide 10 mg tablet 10 mg PO DAILY 10/05/23 10/05/23 torsemide 20 mg tablet 20 mg PO DAILY 10/05/23 10/05/23 warfarin 1 mg tablet 1 mg PO 10/05/23 warfarin 2.5 mg tablet 2.5 mg PO DAILY 10/05/23 10/05/23 warfarin 3 mg tablet mg PO 10/05/23 warfarin 4 mg tablet 4 mg PO DAILY 10/05/23 10/05/23 warfarin 5 mg tablet 5 mg PO DAILY 10/05/23 10/05/23 Allergies Allergy/AdvReac Type Severity Reaction Status Date / Time No Known Drug Allergies Allergy Verified 07/21/22 17:25 [facility] Social History Smoking Status: Never smoker Do you use any of these nicotine containing products: None Second hand tobacco smoke exposure: No How often do you have a drink containing alcohol: never How often do you have six or more drinks on one occasion: Never AUDIT-C Alcohol total score: 0 Non-prescribed substance use: denies use service: No Exam Narrative: Exam Narrative: Constitutional: Appears well-developed and well-nourished. Alert. Quiet and allows his brother to provide most of his history. Brother is very attentive.. Non toxic. HENT: Head: Atraumatic. Nose: Nose normal. Mouth/Throat: Oral mucosa is clear and moist. no trismus. Pharynx normal. Tonsils symmetric. No tonsillar enlargement, erythema, or exudate. Eyes: Conjunctivae normal. EOM normal. Pupils equal, round, and reactive to light. No scleral icterus. Neck: Normal range of motion. Neck supple. No tracheal deviation present. Cardiovascular: Normal rate, regular rhythm. No gallop. No friction rub. No murmur heard. Symmetric radial artery pulses Pulmonary/Chest: Effort normal. No stridor. No respiratory distress. No wheezes. No rales. No rhonchi . There is an area of infection on the lower chest wall. In the central trust wall over the lower sternum just a cm or 2 proximal to his xiphoid there is a roughly 2 x 4 cm abscess under the skin. No drainage. Surrounding this there is significant induration and swelling and redness. A surrounding this there is also a band of redness spreading laterally on both sides roughly 10-14 cm total diameter from side to side and 3-4 cm cephalocaudal. No palpable crepitus. No upper abdominal tenderness. Abdominal: Soft. Bowel sounds normal. No distension. No mass. No tenderness. No rebound. No guarding. Musculoskeletal: RUE: Normal range of motion. No tenderness. No deformity LUE: Normal range of motion. No tenderness. No deformity RLE: Normal range of motion. No edema. No tenderness. No deformity LLE: Normal range of motion. No edema. No tenderness. No deformity Neurological: Alert and oriented to person, place, and time. Allows his brother to provide his history but is at baseline. Normal strength. CN II-VII intact. No sensory deficit. GCS eye subscore is 4. GCS verbal subscore is 5. GCS motor subscore is 6. Normal coordination Skin: Skin is warm and dry. No rash noted. No pallor. Normal capillary refill. Psychiatric: Normal mood. Normal affect. Const: Vital Signs, click to edit/add: Vital Signs - 24 hr 10/05/23 17:53 10/05/23 19:30 10/05/23 20:00 Temperature 98.1 F Pulse Rate 89 85 Pulse Rate [Right Pulse Oximeter] 87 Respiratory Rate 18 14 16 Blood Pressure 121/67 Blood Pressure [Ri ght Upper Arm] 118/68 Pulse Oximetry 97 97 97 Oxygen Delivery Me thod Room Air 10/05/23 20:31 Temperature Pulse Rate 88 Pulse Rate [Right Pulse Oximeter] Respiratory Rate 14 Blood Pressure 127/66 Blood Pressure [Ri ght Upper Arm] Pulse Oximetry 97 Oxygen Delivery Me thod Course Vital Signs Vital signs: Initial Vital Signs Temperature 98.1 F 10/05/23 17:53 Temperature Source Temporal Artery Scan 10/05/23 17:53 Pulse Rate 87 10/05/23 17:53 Pulse Rhythm Regular 10/05/23 17:53 Pulse Strength 3+ Normal 10/05/23 17:53 Respiratory Rate 18 10/05/23 17:53 Blood Pressure 118/68 10/05/23 17:53 Blood Pressure Mean 84 10/05/23 17:53 Blood Pressure Position Sitting 10/05/23 17:53 Pulse Oximetry 97 10/05/23 17:53 Oxygen Delivery Method Room Air 10/05/23 17:53 Vital Signs Temperature 98.1 F 10/05/23 17:53 Pulse Rate 87 10/05/23 17:53 Respiratory Rate 18 10/05/23 17:53 Blood Pressure 118/68 10/05/23 17:53 Pulse Oximetry 97 10/05/23 17:53 Oxygen Delivery Method Room Air 10/05/23 17:53 Temperature 98.1 F 10/05/23 17:53 Pulse Rate 88 10/05/23 20:31 Respiratory Rate 14 10/05/23 20:31 Blood Pressure 127/66 10/05/23 20:31 Pulse Oximetry 97 10/05/23 20:31 Oxygen Delivery Method Room Air 10/05/23 17:53 Medications Administered Medications: Generic Name Dose Route Start Last Admin Trade Name Freq PRN Reason Stop Dose Admin Vancomycin HCl 1,250 mg/ 512.5 mls @ 256.25 mls/hr 10/05/23 19:00 10/05/23 19:56 Sodium Chloride IVPB 256.25 mls/hr Q12H SHERI Administration Protocol Medical Decision Making [facility] Narrative Medical decision making narrative: 63-year-old male with a complex past history including infective endocarditis with embolic stroke just over year ago leading to mitral valve replacement. He presents to the ER today with a chest wall abscess, cellulitis. Fortunately he is hemodynamically stable. White count is normal. CRP mildly elevated. Concern here is that this is probably a postoperative infection stemming from either his previous temporary pacer wires which are still in place, or possibly a sternal wire. CT scan of his chest was undertaken to evaluate the extent of the infection to make sure there was no intrathoracic extension or pericardial abscesses. CT scan confirms the clinically evident abscess and also shows inflammation and phlegmonous change all the way down to the sternum. Sternal Osteomyelitis cannot be excluded. Fortunately no evidence for intrathoracic extension. Discussed initially with Cardiology and then with thoracic surgery from [facility]. They recommend transfer up to the hospitalist service at [facility] with plan for him to be seen by cardiothoracic surgery tomorrow to consider drainage and or debridement, as necessary. We will start the patient on antibiotics-vancomycin to cover for possibly MRSA, Cipro to cover for other pathogens such as Pseudomonas. He is allergic to penicillins and cephalosporins. Discussed the plan of care with the patient and his brother. They expressed understanding and agreement. INR is slightly subtherapeutic at 1.97 this evening. No active bleeding. Will hold off on warfarin for tonight. Lab Data Labs: Lab Results 10/05/23 10/05/23 Range/Units 19:00 20:19 WBC 9.71 (4.50-11.00) K/uL RBC 4.68 (4.30-5.90) m/uL Hgb 12.8 L (13.5-17.5) gm/dL Hct 39.2 (37.0-53.0) % MCV 84 (80-100) fL MCH 27 (26-34) pg MCHC 33 (32-36) gm/dL RDW Coeff of Macie 14.4 (11.5-15.5) % Plt Count 349 (140-440) K/uL Neut % (Auto) 69.9 (42.0-72.0) % Lymph % (Auto) 15.2 L (20-44) % [place] % (Auto) 9.6 (0.0-11.0) % Eos % (Auto) 2.7 (0.0-7.0) % Baso % (Auto) 0.7 (0.0-3.0) % Neut # (Auto) 6.79 (1.7-7.0) K/uL Lymph # (Auto) 1.50 (0.90-2.90) K/uL [place] # (Auto) 0.90 (0.00-0.90) K/UL Eos # (Auto) 0.26 (0.00-0.50) K/uL Baso # (Auto) 0.07 (0.00-0.30) K/uL Abs Immat Gran (auto) 0.18 (0.00-0.30) K/uL Imm/Tot Granulo (auto) 1.9 % INR 1.97 H (0.91-1.10) Sodium 139 (135-149) mmol/L Potassium 4.3 (3.6-5.1) mmol/L Chloride 106 (96-114) mmol/L Carbon Dioxide 28 (20-32) mmol/L Anion Gap 5 L (7-15) mEq/L BUN 17 (7-30) mg/dL Creatinine 1.0 (0.5-1.5) mg/dL Estimated Creat Clear 64.13 Estimated GFR 85 ml/min Glucose 107 (60-115) mg/dL Lactate 1.3 (0.5-1.9) mmol/L Calcium 9.1 (8.4-10.6) mg/dL C-Reactive Protein 3.1 H (0.5-1.0) mg/dL POC Creatinine 1.2 (0.6-1.3) mg/dl Imaging Data CT scan - chest: Attestation: I have reviewed the pertinent imaging results. My impression: IMPRESSION: 1. Small, 2.2 x 1.3 x 4.2 cm, skin abscess with underlying phlegmonous change in the subcutaneous fat overlying and extending down to the lower sternum the setting of prior median sternotomy. No evidence for mediastinal extension; however, osteomyelitis can not be excluded on this exam. 2. Hepatic steatosis. Discharge Plan Discharge Clinical Impression: Abscess of skin or subcutaneous tissue Qualifiers: Site of cutaneous abscess of trunk: chest wall Cellulitis Qualifiers: Site of cellulitis of trunk: chest wall Patient Disposition: [facility] Condition: Stable Prescriptions: No Action ketoconazole 2 % shampoo topical 2XW torsemide 20 mg tablet 20 mg PO DAILY torsemide 10 mg tablet 10 mg PO DAILY warfarin 2.5 mg tablet 2.5 mg PO DAILY warfarin 4 mg tablet 4 mg PO DAILY warfarin 3 mg tablet PO magnesium oxide 400 mg (241.3 mg magnesium) tablet 400 mg PO DAILY tamsulosin 0.4 mg capsule 0.4 mg PO DAILY paroxetine HCl 30 mg tablet 60 mg PO DAILY warfarin 5 mg tablet 5 mg PO DAILY oxybutynin chloride 5 mg tablet extended release 24hr 5 mg PO DAILY omeprazole 20 mg capsule,delayed release(DR/EC) 20 mg PO DAILY clobetasol 0.05 % ointment topical 3XW warfarin 1 mg tablet 1 mg PO polyethylene glycol 3350 17 gram/dose powder 17 g PO DAILY PRN (Reason: constipation) finasteride 5 mg tablet 5 mg PO DAILY metoprolol tartrate 25 mg tablet 25 mg PO BID guaifenesin [Mucus Relief ER] 600 mg tablet extended release 12hr 600 mg PO BID Stand Alone Forms: MyHealth Info Instructions
[2023-10-05 20:39] LABS: INR 1.97 (0.91-1.10); Prothrombin Time 23.8 Seconds
[2023-10-05] MEDS: CIPROFLOXACIN 400 MG/200 ML PIGGYBACK 200 MG IVPB (21:53)
[2023-10-05] MEDS: METOPROLOL TARTRATE 25 MG TABLET PO (22:10)
[2023-10-05] MEDS: TAMSULOSIN HCL 0.4 MG CAPSULE PO (22:10)
[2023-10-05] MEDS: diphenhydrAMINE 50 MG/ML inj 25 MG IVP (22:28)
== END 2023-10-06 00:37 | disposition short-term general hospital (02) ==
PROVIDERS: Emergency Provider Emergency Medicine
DX: L02.213 Cutaneous abscess of chest wall (principal); L03.313 Cellulitis of chest wall
CPT/HCPCS: 36415; 71260; 80048; 82565; 83605; 85025; 85610; 86140; 87040; 93005; 96365; 96366; 96367; 96375; 99284; 99285; A9270; J0744; J1200; J3370; J7030; Q9967

== ENCOUNTER 2023-10-06 00:28 | Outpatient (CLI) | payer BC, SELFPAY ==
--- OUTSIDE RECORDS SUMMARY | 2023-10-09 06:50 | XMS_ITS | Clinical Summary ---
Author Name Unknown Organization [facility] Address [place], [place] [address] Care Team Providers Care Photography Sales Associate Name Role Phone Ajay Pink MD Primary Care Provider [phone] Dorothy Powell Unavailable [phone] Travis Lynch MD Unavailable Unavailable Allergies Active Allergy Reactions Criticality Noted Date Comments Cefazolin Rash 09/09/2022 Nafcillin Rash 09/09/2022 Also possible drug induced liver injury Medications Medication Sig Dispensed Refills Start Date End Date Status alfuzosin (UROXATRAL) 10 mg Sustained-Release tabletIndications :Benign prostatic hyperplasia with incomplete bladder emptying Take 1 Tablet (10 mg) by mouth once daily with a meal. 90 Tablet 3 2 10/06/19 24 Discontinued( Reorder (E-cancel not sent)) finasteride (PROSCAR) 5 mg tabletIndications :BPH without urinary obstruction Take 1 Tablet (5 mg) by mouth every morning. 90 Tablet 3 2 Suspended Additional Information oxybutynin XL (DITROPAN XL) 5 mg CR tabletIndications :Urinary urgency Take 1 Tablet (5 mg) by mouth once daily. 90 Tablet 3 2 Suspended Additional Information omeprazole (PRILOSEC) 20 mg Delayed-Release capsuleIndication s:Gastroesophagea l reflux disease, unspecified whether esophagitis present Take 1 Capsule (20 mg) by mouth once daily before a meal. Take 30-60 minutes before a meal/food once a day. 90 Capsule 3 2 Suspended Additional Information multivitamins-min erals-lutein (Multivitamin 50 Plus) tab tablet Take 1 Tablet by mouth once daily. Suspended MAGNESIUM ORAL Take 1 Tablet by mouth once daily. 10/06/19 24 Discontinued( Reorder (E-cancel not sent)) CALCIUM ORAL Take 1 Tablet by mouth once daily. 10/06/19 24 Discontinued( Reorder (E-cancel not sent)) acetaminophen (TYLENOL) 325 mg tabletIndications :Pain Take 2 Tablets (650 mg) by mouth every 4 hours if needed for Pain or Temp>101.5F (38.6C). Max acetaminophen dose: 4000mg in 24 hrs. 0 3 Suspended Additional Information metoprolol tartrate (LOPRESSOR) 25 mg tabletIndications :HTN (hypertension) Take 1 Tablet (25 mg) by mouth two times daily. 0 3 Suspended Additional Information polyethylene glycol (MIRALAX; GLYCOLAX) 17 g per packet packetIndications :Constipation, unspecified constipation type Mix 17 g (1 Packet) in liquid then take by mouth once daily if needed for Constipation. 0 3 Suspended Additional Information torsemide (DEMADEX) 20 mg tabletIndications :Edema, unspecified type Take 1 Tablet (20 mg) by mouth once daily. 0 3 10/06/19 24 Discontinued( Reorder (E-cancel not sent)) warfarin (COUMADIN) 2 mg tabletIndications :S/P MVR (mitral valve replacement) 4 mg po on 09/18/2022, further dosing as per INR on 09/19/2022 0 3 Suspended Additional Information PARoxetine (PAXIL) 30 mg tabletIndications :Social anxiety disorder,Mixed obsessional thoughts and acts TAKE 2 TABLETS BY MOUTH EVERY MORNING 60 Tablet 3 Suspended Additional Information Antacid, calcium carbonate, 200 mg calcium (500 mg) chewable tablet Chew 500 mg by mouth once daily. 4 Suspended magnesium oxide (MAG-OX 400) 400 mg tablet Take 400 mg by mouth once daily. 4 Suspended tamsulosin (FLOMAX) 0.4 mg capsule Take 0.4 mg by mouth once daily after a meal. 4 Suspended torsemide (DEMADEX) 10 mg tablet Take 10 mg by mouth once daily. 4 Suspended clobetasol 0.05% (TEMOVATE 0.05% OINTMENT) 0.05 % ointment Apply topically to affected area(s) every Friday, Friday and Friday. For Eczema around ears and scalp spots 3 Suspended Active Problems Problem Noted Date Diagnosed Date Abscess of sternal region 10/06/2023 Coag negative Staphylococcus bacteremia 08/19/19 23 Positive blood culture 08/18/2022 Fever 08/17/2022 At risk for healthcare associated infection 07/31 Shock liver 08/02/2022 Transaminitis 08/02/2022 At risk for infection 08/02/2022 S/P MVR (mitral valve replacement) 07/29/2022 Overview: MITRAL VALVE.[facility] MECH[employer]ICAL HEART VALVE SZ 27MM. REF: [id number]. SN:[id number]. IMPLANTED BY DR. PARRISH Hypocalcemia 07/27/2022 Acute [...] PSA 07/26/2018 Overview: According to records from [place] he has had an elevated PSA the last several years. His PSA was 15 in 2013 and biopsy showed only inflammation. Screening for colon cancer 07/26/2018 Overview: He had a normal colonoscopy in 05/2015 in [place]. Next colonoscopy is due on 05/22/2025. Sensorineural [...] hearing loss of both ears 10/13/2017 10/19/2019 Encounters Date Type Department Care Team Description 10/06/2023 2:19 PM CDT Anesthesia Event [facility] [address] [address] Brigitte Garnett MD Groff, Bryan P, RECYCLING DIRECTOR Student 10/06/2023 1:50 PM CDT - 10/06/2023 3:49 PM CDT Surgery [facility] [address] [address] Jorge Parrish MD INCISION AND DRAINAGE STERNAL WOUND, WOUND VAC PLACEMENT 10/06/2023 1:49 AM CDT - Present Hospital Encounter [facility] [address] [address] [facility] [place] Hospitalists Of Sandra Hansen MBBS Draisey, Ashley Diane, DO 10/05/2023 Telephone [facility] [address] [place] [id number] Noah Herndon MD Error-please disregard (opened in error) from Last 3 Months Immunizations Name Administration Dates Next Due COVID-19 vaccine (Pfizer-Bio NTech 30mcg/0.3mL) 12YO+ PROMISE-SUCROSE ESTEPHANIE BENNETT 10/26/2021 COVID-19 vaccine (Pfizer-BioNTech 30mcg/0.3mL) Sneha FESTEPHANIE 10/07/2020,09/16/2020 Influenza RIV4 (Age 18+ Years) PRESERV [...] Sign Reading Time Taken Comments Blood Pressure 123/62 10/08/2023 7:00 PM CDT Pulse 79 10/09/2023 12:00 AM CDT Temperature 36.9 ??C (98.5 ??F) 10/08/2023 7:00 PM CD T Respiratory Rate 18 10/08/2023 7:00 PM CDT Oxygen Saturation 93% 10/08/2023 7:00 PM CDT Inhaled Oxygen Concentration - - Weight 79.6 kg (175 lb 8 oz) 10/06/2023 5:00 AM CDT Height 161.9 cm (5' 3.75) 11/22/2022 2:03 PM CD T Body Mass Index 30.36 11/22/2022 2:03 PM CDT Plan of Treatment Health Maintenance Due Date Last Done Comments Pneumococcal series for age 6-64 (1 of 2 - PCV) 1967 HIV for age 15-65 1976 Colonoscopy through age 75 2006 Zoster (shingles) series for age 50+ (1 of 2) 2011 Depression screening for age 12+ 01/16/2023 01/16/2022, 03/06/2021, 01/12/2020, Additional history exists COVID-19 vaccine series (2022-24 season) 2023 10/26/2021, 10/07/2020, 09/16/2020 BMI (ht and wt on same day) for age 18+ 11/23/2023 11/22/2022, 01/16/2022, 08/16/2019, Additional history exists Influenza for age 50-64 02/01/2024 07/21/2019 Lipids for age 45-75 07/22/2027 07/22/2022, 01/16/2022, 07/29/2018 Tetanus booster 08/15/2029 08/16/2019 Tdap Completed 08/16/2019 Hepatitis C screening for ag e 18-79 Completed 01/16/2022 Medical Devices Implanted Type Area Fisher Line Device Identifier Shelf Expiration Date Model / Serial / Lot Valve Mitral 27mm [employer] - [id number] Implanted:Qty: 1 on 07/29/2022 by Jorge Parrish MD at [facility] N/A: Mitral Valve [facility] 04/17/2027 [id number] / [id number] / Procedures The patient is currently admitted. The information in this section might not be complete until the patient is discharged. Procedure Name Priority Date/Time Associated Diagnosis Comments APTT Early AM 10/09/2023 5:52 AM CDT PROTIME-INR Early AM 10/09/2023 5:52 AM CDT HEMATOCRIT Early AM 10/09/2023 5:52 AM CDT HEMOGLOBIN Early AM 10/09/2023 5:52 AM CDT PLATELET COUNT Early AM 10/09/2023 5:52 AM CDT SCAN-CARDIAC STRIP 10/09/2023 3: 37 AM CDT CREATININE Timed 10/08/2023 11:19 AM CDT VANCOMYCIN TROUGH Timed 10/08/2023 11: 19 AM CDT APTT Timed 10/08/2023 5:49 AM CDT PROTIME-INR Early AM 10/08/2023 5:49 AM CDT HEMATOCRIT Early AM 10/08/2023 5:49 AM CDT HEMOGLOBIN Early AM 10/08/2023 5:49 AM CDT PLATELET COUNT Early AM 10/08/2023 5:49 AM CDT SCAN-CARDIAC STRIP 10/08/2023 1: 32 AM CDT APTT Timed 10/07/2023 9:10 PM CDT APTT Timed 10/07/2023 12:31 PM CDT APTT Timed 10/07/2023 5:39 AM CDT PROTIME-INR Early AM 10/07/2023 5:39 AM CDT CREATININE Early AM 10/07/2023 5:39 AM CDT HEMATOCRIT Early AM 10/07/2023 5:39 AM CDT HEMOGLOBIN Early AM 10/07/2023 5:39 AM CDT PLATELET COUNT Early AM 10/07/2023 5:39 AM CDT SCAN-CARDIAC STRIP 10/07/2023 12 :53 AM CDT APTT Timed 10/07/2023 12:06 AM CDT XR CHEST 1 VIEW PORTABLE Post Op 10/06/2023 5:02 PM CDT BASHIR Routine 10/06/2023 4:04 PM CDT HARDWARE CULTURE , STAIN Today 10/06/2023 3:38 PM CDT ANAEROBIC CULTURE Today 10/06/2023 3:3 8 PM CDT BODY FLUID CULTURE,STAIN (AEROBIC) Today 10/06/2023 3:35 PM CDT ANAEROBIC CULTURE Today 10/06/2023 3:3 5 PM CDT BODY FLUID CULTURE,STAIN (AEROBIC) Today 10/06/2023 3:34 PM CDT BODY FLUID CULTURE,STAIN (AEROBIC) Today 10/06/2023 3:32 PM CDT ENDOTRACHEAL TUBE Routine 10/06/2023 2:3 6 PM CDT APTT Today 10/06/2023 11:17 AM CDT HEPATIC FUNCTION PANEL Today 10/06/2023 6:54 AM CDT CREATININE KIRK 10/06/2023 6:54 AM CDT BUN KIRK 10/06/2023 6:54 AM CDT HEMATOCRIT KIRK 10/06/2023 6:54 AM CDT HEMOGLOBIN KIRK 10/06/2023 6:54 AM CDT PLATELET COUNT KIRK 10/06/2023 6:54 AM CDT PROTIME-INR KIRK 10/06/2023 6:54 AM CDT WHITE BLOOD COUNT Early AM 10/06/2023 6:5 4 AM CDT SCAN-CARDIAC STRIP 10/06/2023 4: 53 AM CDT SCAN-CARDIAC STRIP 10/06/2023 12 :00 AM CDT LIPID PANEL Early AM 07/22/2022 3:56 AM THERMOFORMING OPERATOR ANTI HCV Routine 01/16/2022 3:28 PM CDT Need for hepatitis C screening test from Last 3 Months or Most Recently Relevant to Health Maintenance Results * PLATELET COUNT (10/09/2023 5:52 AM CDT) Only the most recent of4 resultswithin the time period is included. PLATELET COUNT 238 140 - 440 thou/cu mm 10/09/2023 6:08 AM CDT [facility] MPV 9.1 6.5 - 11.0 fL 10/09/2023 6:08 AM CDT [facility] Blood BLOOD SPECIMEN / Unknown Venipuncture / Unknown 10/09/2023 5:52 AM CDT 10/09/2023 6:03 AM CDT [facility] - 10/09/2023 6:08 AM CDT Every morning while on IV heparin. Every morning while on IV heparin. Necessary every morning while on IV heparin. Sandra ALVARENGA HEMATOLOGY Performing Organization Address [facility]/State/ZIP Co de Phone Number [facility] [address] [place] [id number], * (ABNORMAL) HEMOGLOBIN (10/09/2023 5:52 AM CDT) Only the most recent of4 resultswithin the time period is included. HEMOGLOBIN 10.0(L) 13.5 - 17.5 g/dL 10/09/2023 6:08 AM CDT [facility] MCV 84 80 - 100 fL 10/09/2023 6:08 AM CDT [facility] Blood BLOOD SPECIMEN / Unknown Venipuncture / Unknown 10/09/2023 5:52 AM CDT 10/09/2023 6:03 AM CDT [facility] - 10/09/2023 6:08 AM CDT Every morning while on IV heparin. Every morning while on IV heparin. Necessary every morning while on IV heparin. Sandra ALVARENGA HEMATOLOGY Performing Organization Address City/[facility]/ZIP Co de Phone Number [facility] [address] [address], [place] * (ABNORMAL) HEMATOCRIT (10/09/2023 5:52 AM CDT) Only the most recent of4 resultswithin the time period is included. HEMATOCRIT 31.0(L) 37.0 - 53.0 % 10/09/2023 6:08 AM CDT [facility] Blood BLOOD SPECIMEN / Unknown Venipuncture / Unknown 10/09/2023 5:52 AM CDT 10/09/2023 6:03 AM CDT Narrative [facility] - 10/09/2023 6:08 AM CDT Every morning while on IV heparin. Every morning while on IV heparin. Necessary every morning while on IV heparin. Sandra ALVARENGA HEMATOLOGY Performing Organization Address [facility] Co de Phone Number [facility] [address] [place] [address], [place] * (ABNORMAL) APTT (10/09/2023 5:52 AM CDT) Only the most recent of7 resultswithin the time period is included. APTT 68(H) 28 - 36 sec 10/09/2023 6:17 AM CDT [facility] Blood BLOOD SPECIMEN / Unknown Venipuncture / Unknown 10/09/2023 5:52 AM CDT 10/09/2023 6:03 AM CDT Narrative [facility] - 10/09/2023 6:17 AM CDT Therapeutic Range: 57-87 seconds Radha Wooten MD HEMATOLOGY Performing Organization Address City/[facility] Co de Phone Number [facility] [address] [place] [id number], [place] * (ABNORMAL) PROTIME-INR (10/09/2023 5:52 AM CDT) Only the most recent of4 resultswithin the time period is included. INR 2.0(H) <1.3 10/09/2023 6:17 AM CDT [facility] PROTIME 22.1(H) 10.3 - 12.3 sec 10/09/2023 6:17 AM CDT [facility] Blood BLOOD SPECIMEN / Unknown Venipuncture / Unknown 10/09/2023 5:52 AM CDT 10/09/2023 6:03 AM CDT Narrative [facility] - 10/09/2023 6:17 AM CDT ?Therapeutic Range 2.0-3.0 for most anticoagulated patients 2.5-3.5 or 4.0 for high risk patients The INR is only used for patients on stable oral anticoagulant therapy. It makes no significant contribution to the diagnosis or treatment of patients whose Protime is prolonged for other reasons. INR results are increased when heparin levels exceed 1.0 U/mL, which corresponds to an aPTT >125 seconds if the patient is on UFH. Fátima Pond DO HEMATOLOGY [facility] [address] [place] [address], * SCAN-CARDIAC STRIP (10/09/2023 3:37 AM CDT) Scanner OTHER * CREATININE (10/08/2023 11:19 AM CDT) Only the most recent of3 resultswithin the time period is included. Pathologist [facility] [place] eGFR >90 >90 mL/min/1.7 3m2 10/08/2023 11:58 AM CDT [facility] Comment:As of 2021, eG FR is calculated by the CKD-EPI creatinine equation without race adjustment. ??eGFR can be influenced by muscle mass, exercise, and diet. ??The reported eGFR is an estimation only and is only applicable if the renal function is stable. CREATININE 0.87 0.70 - 1.20 mg/dL 10/08/2023 11:58 AM CDT [facility] Blood BLOOD SPECIMEN / Unknown Butterfly / Unknown 10/08/2023 11:19 AM CDT 10/08/2023 11:24 AM CDT Fátima Pond DO CHEMISTRY Performing Organization Address [facility] de Phone Number [facility] [address] [place] [address], * VANCOMYCIN TROUGH (10/08/2023 11:19 AM CDT) VANCOMYCIN,TROUG H 10/08/2023 2:00 PM CDT [facility] Comment:Canceled- Specimen I mproperly Collected, Disposition Per Policy DATE OF LAST DOSE,TROUGH Not Given 10/08/2023 2:00 PM CDT [facility] TIME OF LAST DOSE,TROUGH Not Given 10/08/2023 2:00 PM CDT [facility] Blood BLOOD SPECIMEN / Unknown Butterfly / Unknown 10/08/2023 11:19 AM CDT 10/08/2023 11:24 AM CDT Fátima Pond DO CHEMISTRY Performing Organization Address [facility] de Phone Number [facility] [address] [place] [address], * SCAN-CARDIAC STRIP (10/08/2023 1:32 AM CDT) Scanner OTHER * SCAN-CARDIAC STRIP (10/07/2023 12:53 AM CDT) Scanner OTHER * XR CHEST 1 VIEW PORTABLE (10/06/2023 5:02 PM CDT) Anatomical Region Laterality Modality HEART, THORAX, CHEST Digital Rad iography Impressions 10/06/2023 6:35 PM CDT Cardiovascular structures: [Heart size and pulmonary vascularity normal allowing for portable technique.] Sternotomy and mitral valve prosthesis/repair Lungs and pleura: [No new focal pulmonary opacities or pneumothorax.] Minimal atelectasis left lower lobe decreased from previous. [] Narrative 10/06/2023 6:35 PM CDT INDICATION Postop sternal wound debridement TECHNIQUE Portable single view chest COMPARISON August 16, 2022 Crystal Mora NP GENERAL IMAGING * BASHIR (10/06/2023 4:04 PM CDT) Narrative Brigitte Garnett MD - 10/06/2023 4:18 PM CDT Brigitte Garnett MD ? 10/06/2023 ??4:05 PM BASHIR Completed: Patient identified, risks and benefits discussed, monitors and equipment assessed and anesthesia consent obtained. General Procedure Information Diagnostic Indications for Echo: assessment of cardiac structure and function and elective. Location performed: OR procedure room Probe Insertion: easy Inserted by: AnesthesiologistProbe Type: multiplane Report generated by: NoneIntubated: yes Stomach suctioned: no Bite block inserted Bite block: Removed Supplemental O2: yes Anesthesia Information Echocardiogram Comments: ? Limited BASHIR performed at request of Dr Parrish to rule out valvular vegetations. No vegetations seen. Normal biventricular function. Normally functioning mechanical MVR. AV is trileaflet with mild regurgitation. Brigitte Garnett MD ANESTHESIA PX NOTE O RDERABLES * ETT (10/06/2023 2:36 PM CDT) Narrative Rafal Logan CRNA Student - 10/06/2023 2:36 PM CDT Rafal Logan CRNA Student ? 10/06/2023 ??2:37 PM Procedure: ETT Patient location during procedure: OR ETT Properties Mask Ventilation: oral airway and easy Final Technique: video laryngoscopy Type: straight Location: oral Cuffed: yes Tube Size: 7.5 mm Stylet: yes Laryngoscope Blade: Glidescope Blade Size: 4 Cormack-Lehane Grade View: 1 Insertion Attempts: 1 Placement Verification: auscultation, end tidal CO2 and symmetrical chest wall movement Assessment: pharynx clear, atraumatic and dentition unchanged Secured at: 23 Measured From: lips Difficulty: 0 (not difficult) Brigitte Garnett MD ANESTHESIA PX NOTE O RDERABLES * (ABNORMAL) WHITE BLOOD COUNT (10/06/2023 6:54 AM CDT) [facility] WHITE BLOOD COUNT 11.8(H) 4.5 - 11.0 thou/cu mm 10/06/2023 7:54 AM CDT [facility] NRBC 0.0 % 10/06/2023 7:54 AM CDT [facility] ABS NRBC 0.0 thou /cu mm 10/06/2023 7:54 AM CDT [facility] Blood BLOOD SPECIMEN / Unknown Venipuncture / Unknown 10/06/2023 6:54 AM CDT 10/06/2023 7:41 AM CDT Narrative [facility] - 10/06/2023 7:54 AM CDT Obtain before initiating IV heparin therapy if not done within previous 24 hours. Obtain before initiating IV heparin therapy if not done within previous 24 hours. Obtain before initiating IV heparin therapy if not done within previous 24 hours. Sandra ALVARENGA HEMATOLOGY [facility] [address] [place] [address], * BUN (10/06/2023 6:54 AM CDT) [facility] BUN 15 8 - 23 mg/dL 10/06/2023 8:11 AM CDT [facility] Blood BLOOD SPECIMEN / Unknown Venipuncture / Unknown 10/06/2023 6:54 AM CDT 10/06/2023 7:41 AM CDT Sandra ALVARENGA CHEMISTRY [facility] [address] [place] [address], * (ABNORMAL) Hepatic function panel TODAY (10/06/2023 6:54 AM CDT) [facility] ALBUMIN 3.6(L) 4.0 - 4.9 g/dL 10/06/2023 8:11 AM CDT [facility] PROTEIN,TOTAL 7.8 6.0 - 8.0 g/dL 10/06/2023 8:11 AM CDT [facility] BILIRUBIN,TOTAL 0.4 0.0 - 1.2 mg/dL 10/06/2023 8:11 AM CDT [facility] BILIRUBIN,DIRECT <0.2 0.0 - 0.3 mg/dL 10/06/2023 8:11 AM CDT [facility] BILIRUBIN,INDIRE CT 10/06/2023 8:11 AM CDT [facility] Comment:Unable to calculate, Direct Bili <0.2 ALK PHOSPHATASE 71 40 - 129 IU/L 10/06/2023 8:11 AM CDT [facility] ALT (SGPT) 13 10 - 50 IU/L 10/06/2023 8:11 AM CDT [facility] AST (SGOT) 25 10 - 50 IU/L 10/06/2023 8:11 AM CDT [facility] Blood BLOOD SPECIMEN / Unknown Venipuncture / Unknown 10/06/2023 6:54 AM CDT 10/06/2023 7:41 AM CDT Sandra ALVARENGA CHEMISTRY [facility] [address] [place] [id number], * SCAN-CARDIAC STRIP (10/06/2023 4:53 AM CDT) Scanner OTHER * SCAN-CARDIAC STRIP (10/06/2023 12:00 AM CDT) Narrative 10/06/2023 12:00 AM CDT Ordered by an unspecified provider. Other Clinical Staff OTHER * (ABNORMAL) Lipid Panel (07/22/2022 3:56 AM THERMOFORMING OPERATOR) CHOLESTEROL,TOTAL 97 mg/dL 023 4:47 AM THERMOFORMING OPERATOR [facility] Comment: Cholesterol, Total Reference Ranges Desirable <200 mg/dL Borderline 200-239 mg/dL High >=240 mg/dL TRIGLYCERIDES 297(H) <150 mg/dL 07/22/2022 4:47 AM [facility] HDL CHOLESTEROL 11(L) >40 mg/dL 4:47 AM THERMOFORMING OPERATOR [facility] NON-HDL CHOLESTEROL 86 <145 mg/dl 07/22/2022 4:47 AM [facility] CHOL/HDL RATIO 8.82(H) <4.50 07/22/2022 4:47 AM [facility] LDL CHOLESTEROL 27 <=130 mg/dL 07/22/2022 4:47 AM [facility] VLDL CHOLESTEROL 59 >30 mg/dL 07/22/19 4:47 AM [facility] PROVIDER ORDERED STATUS RANDOM 07/22/2022 4:47 AM [facility] Blood BLOOD SPECIMEN / Unknown Butterfly / Unknown 07/22/2022 3:56 AM THERMOFORMING OPERATOR 07/22/2022 4:11 AM THERMOFORMING OPERATOR Catracho Pedersen MD CHEMISTRY [facility] [address] [place] [address], * ANTI HCV (01/16/2022 3:28 PM CDT) HEPATITIS C ANTIBODY Non-React rowdy Non-React rowdy 01/17/2022 2:29 AM CDT [facility] Comment:Antibodies to HCV no t detected; does not exclude the possibility of exposure to HCV. Blood BLOOD SPECIMEN / Unknown Venipuncture / Unknown 01/16/2022 3:28 PM CDT 01/16/2022 3:31 PM CDT Ajay Pink MD SEND OUTS [facility] [address] [place] [address], [place] from Last 3 Months or Most Recently Relevant to Health Maintenance Advance Directives Documents on File Type Date Recorded Patient Fisher Purse Seine Expl anation Healthcare Directive 10/16/2022 12:00 AM * Full Code (Latest Code Status on File) Date Activated Date Inactivated Comments 10/06/2023 3:54 AM Question Answer Comments Code Status Discussion: Reviewed Preferences * Full Code Date Activated Date Inactivated Comments 08/26/2022 3:44 [...] Preferences, Provider to review later Care Teams Photography Sales Associate Relationship Specialty Start Date End Date Ajay Pink MD [address] [place] [address] PCP - General Family Practice 10/06/17 Dorothy Powell AuD [address] [place] [address] Audiology 11/14/17 Travis Lynch MD [address] [place] [address] [address] [facility] 11/22/22
--- OUTSIDE RECORDS SUMMARY | 2023-10-09 06:50 | XMS_ITS | Data Portability ---
Author Name Unknown Address [address] [place] [address] Phone [phone] Organization [facility], [facility] Address [address] [place] [address] Care Team Providers Care Senior Java Architect Name Role Phone SANTHOSH DUVAL Primary Care Provider [phone] Assessment No assessment recorded. Plan of Treatment [...] Available [facility] [address], [place], [address], 11/16/2021 12:16:25 11/17/19 22 11/16/2021 urina lysis , dipst ick Clarity-Stat us Clear Not Available [facility] [address], [place], [address], 11/16/2021 12:16:25 11/17/19 22 11/16/2021 urina lysis , dipst ick Glucose-Stat us Negati ve Not Available [facility] [address], [place], [address], 11/16/2021 12:16:25 11/17/19 22 11/16/2021 urina lysis , dipst ick Bilirubin-St atus Negati ve Not Available [facility] [address], [place], [address], 11/16/2021 12:16:25 11/17/19 22 11/16/2021 urina lysis , dipst ick Ketones-Stat us Negati ve Not Available [facility] [address], [place], [address], 11/16/2021 12:16:25 11/17/19 22 11/16/2021 urina lysis , dipst ick Sp Minter-Stat us 1.020 Not Available [facility] [address], [place], [address], 11/16/2021 12:16:25 11/17/19 22 11/16/2021 urina lysis , dipst ick pH-Status 6.0 Not Available [facility] [address], [place], [address], 11/16/2021 12:16:25 11/17/19 22 11/16/2021 urina lysis , dipst ick Urobilinogen -Status 0.2 Not Available [facility] [address], [place], [address], 11/16/2021 12:16:25 11/17/19 22 11/16/2021 urina lysis , dipst ick Nitrates-Sta tus negati ve Not Available [facility] [address], [place], [address], 11/16/2021 12:16:25 11/17/19 22 11/16/2021 urina lysis , dipst ick Blood-Status Negati ve Not Available [facility] [address], [place], [address], 11/16/2021 12:16:25 11/17/19 22 11/16/2021 urina lysis , dipst ick Leuko-Status Negati ve Not Available [facility] [address], [place], [address], 11/16/2021 12:16:25 11/17/19 22 11/16/2021 urina lysis , dipst ick Specimen Type Voided Not Available [facility] [address], [place], [address], 11/16/2021 12:16:25 08/24/19 21 08/21/2020 measu remen [...] Recorded Time tonsillectomy completed ANNA Hernandez [facility] 11/16/2021 12:25:28 Imaging Results Imaging Date Name Status [facility] Details LastModified Time 08/21/2020 measurement of post-voiding residual urine and/or bladder capacity (PROC) completed [email or web address] Information not available 11/16/2021 13:11:52 09/03/2021 measurement of post-voiding residual urine and/or bladder capacity (PROC) completed [email or web address] Information not available 11/16/2021 13:11:51 10/26/2021 CT, [...] Updated DateTime 11/16/2021 162.56 cm 31.1 kg/m2 68595.22 g ANNA Hernandez [facility] 11/16/2021 12:23:23 Social History Question Answer Notes LastModified by Organizat ion Details LastModified Time Tobacco Smoking Status Never Smoker ANNA Hernandez [facility] 11/16/2021 12:25:11 What Is Your [...] of diabetes mellitus Medical History Condition Response Diabetes N Sexually Transmitted Infection N Bleeding Disorder N Other Y High Blood Pressure N Kidney Stones N High Cholesterol N GERD/Acid Reflux Y Heart Disease N Cancer N Lung Disease N Depression N Past Encounters Encounter ID Performer Location Encounter Start Date Encounter Closed Date Diagnosis/Indication Diagnosis SNOMED-CT Code [id number] Julián Paulino MD [facility] [address] [place] [address] 11/16/2021 11:53:22 11/19/2021 13:00:23 Blood in urine 04314407 Recurrent urinary tract infection 042077163 Large prostate [id number] Health Concerns Section Related Observation LastModified by Organization Detai ls LastModified Time None Recorded Concern Status LastModified by Organization Details LastModified Time None Recorded Advance Directives Directive None Recorded Payers Encounter Date Sequence Insurance Name Policy Number Policy Shoemaker Covered Member ID Shoemaker Member ID Guarantor Name 11/16/2021 1 [place] [id number] Santhosh Sara Philip [id number] Santhosh A Tamera Notes Date Note Type Note Provider Name and Address Organization Details Recorded Time 11/16/2021 text/html HPI Notes: Mr. Philip is a very pleasant 61-year-old gentleman who follows with my partner, Dr. Anton, down in our [place] office. Patient has a long history of [...] some of the history. Julián Paulino MD [address], [place], [address], [facility] 11/16/2021 13:18:26
== END 2023-10-06 00:29 | disposition home or self-care (01) ==
LOC: AMB 10-09 06:48
PROVIDERS: Visit Provider Family Medicine
DX: L02.91 Cutaneous abscess, unspecified (principal); T82 Complications of cardiac and vascular prosthetic devices, implants and grafts
CPT/HCPCS: A0425; A0429

== ENCOUNTER 2024-01-13 09:34 | Outpatient (REF) | payer BC, SELFPAY ==
--- OUTSIDE RECORDS SUMMARY | 2024-01-13 09:37 | XMS_ITS | Data Portability ---
Author Organization [facility] Address [address] [place] [address] Care Team Providers Care Hospice Clinical Manager Name Role Phone SANTHOSH DUVAL Primary Care Provider [phone] Assessment No assessment recorded. Plan of Treatment Reminders Order Date Submit Date Provider Last Modified By Organization Details Last Modified Time Details Appointments [facility] 20 2023 10:40A M Not available Not available Not available Lab urinalysi s, dipstick 2021 022 Not available 11/16/2021 12:29:20 Referral None recorded. Procedures None recorded. [...] Available [facility] [address], [place], [address], 11/16/2021 12:16:25 11/17/19 22 11/16/2021 urina lysis , dipst ick Clarity-Stat us Clear Not Available [facility] [address], [place], [address], 11/16/2021 12:16:25 11/17/19 22 11/16/2021 urina lysis , dipst ick Glucose-Stat us Negati ve Not Available [facility] [address], [place], [address], 11/16/2021 12:16:25 11/17/19 22 11/16/2021 urina lysis , dipst ick Bilirubin-St atus Negati ve Not Available [facility] [address], [place], [address], 11/16/2021 12:16:25 11/17/19 22 11/16/2021 urina lysis , dipst ick Ketones-Stat us Negati ve Not Available [facility] [address], [place], [address], 11/16/2021 12:16:25 11/17/19 22 11/16/2021 urina lysis , dipst ick Sp [place]-Stat us 1.020 Not Available [facility] [address], [place], [address], 11/16/2021 12:16:25 11/17/19 22 11/16/2021 urina lysis , dipst ick pH-Status 6.0 Not Available [facility] [address], [place], [address], 11/16/2021 12:16:25 11/17/19 22 11/16/2021 urina lysis , dipst ick Urobilinogen -Status 0.2 Not Available [facility] [address], [place], [address], 11/16/2021 12:16:25 11/17/19 22 11/16/2021 urina lysis , dipst ick Nitrates-Sta tus negati ve Not Available [facility] [address], [place], [address], 11/16/2021 12:16:25 11/17/19 22 11/16/2021 urina lysis , dipst ick Blood-Status Negati ve Not Available [facility] [address], [place], [address], 11/16/2021 12:16:25 11/17/19 22 11/16/2021 urina lysis , dipst ick Leuko-Status Negati ve Not Available [facility] [address], [place], [address], 11/16/2021 12:16:25 11/17/19 22 11/16/2021 urina lysis , dipst ick Specimen Type Voided Not Available [facility] [address], [place], [address], 11/16/2021 12:16:25 11/14/19 22 10/26/2021 CT, abdom en + pelvi s, w/o contr ast No observ ation record ed. [facility] Not Available 11/16/2021 13:11:51 Result Notes None recorded. Procedures Surgical History Date Name Laterality Status Provider Name and Address Organization Details Recorded Time tonsillectomy completed Rhianna Moore [facility] 11/16/2021 12:25:28 Imaging Results Imaging Date Name Status LastModified by Organiz ation Details LastModified Time 10/26/2021 CT, abdomen + pelvis, w/o contrast completed [facility] Information not available 11/16/2021 13:11:51 Procedure Notes [...] Updated DateTime 11/16/2021 162.56 cm 31.1 kg/m2 76517.22 g Rhianna Moore [facility] 11/16/2021 12:23:23 Social History Question Answer Notes LastModified by Organizat ion Details LastModified Time Tobacco Smoking Status Never Smoker Rhianna Moore [facility] 11/16/2021 12:25:11 What Is Your Level [...] Nicotine? No Information not available 11/16/2021 Sex: Unknown Functional Status None recorded. Mental Status None recorded. Family History Relationship Description Onset Age of this Age Resolved Age Notes Mother Family history of malignant neoplasm leukemia Maternal Grandmother Family history of breast cancer Father Family history of diabetes mellitus Medical History Condition Response Diabetes N Sexually Transmitted Infection N Other Y Bleeding Disorder N High Blood Pressure N Kidney Stones N High Cholesterol N GERD/Acid Reflux Y Heart Disease N Cancer N Lung Disease N Depression N Past Encounters Encounter ID Performer Location Encounter Start Date Encounter Closed Date Diagnosis/Indication Diagnosis SNOMED-CT Code [id number] Julián Paulino MD [facility] [address] [place] [address] 11/16/2021 11:53:22 11/19/2021 13:00:23 Blood in urine 02431551 Recurrent urinary tract infection [id number] Large prostate 556669325 Health Concerns Section Related Observation LastModified by Organization Detai ls LastModified Time None Recorded Concern Status LastModified by Organization Details LastModified Time None Recorded Advance Directives Directive None Recorded Payers Encounter Date Sequence Insurance Name Policy Number Policy Shoemaker Covered Member ID Shoemaker Member ID Guarantor Name 11/16/2021 1 [place] [id number] Santhosh Philip [id number] Santhosh Philip Notes Date Note Type Note Provider Name and Address Organization Details Recorded Time 11/16/2021 text/html HPI Notes: Mr. Philip is a very pleasant 61-year-old gentleman who follows with my partner, Dr. Anton, down in our [place] office. Patient has a long history of [...] some of the history. Julián Paulino MD [address], [place], [address], [facility] 11/16/2021 13:18:26
--- OUTSIDE RECORDS SUMMARY | 2024-01-13 09:37 | XMS_ITS | Clinical Summary ---
Author Organization [email or web address] [facility] Address [place], [place] [address] Care Team Providers Care Relief Worker Name Role Phone Dorothy Powell Danis Unavailable [phone] Travis Lynch MD Unavailable Unavailable Travis Lynch MD Primary Care Provider [phone] Allergies Active Allergy Reactions Criticality Noted Date Comments Cefazolin Rash 09/09/2022 Ciprofloxacin Rash 10/17/2023 Extensive red rash and itching after one dose Nafcillin Rash 09/09/2022 Also possible drug induced liver injury Vancomycin *Unknown 12/30/2023 Medications Medication Sig Dispensed Refills Start Date End Date Status finasteride (PROSCAR) 5 mg tabletIndications: BPH without urinary obstruction Take 1 Tablet (5 mg) by mouth every morning. 90 Tablet 3 01/17/20 22 Active oxybutynin XL (DITROPAN XL) 5 mg CR tabletIndications: Urinary urgency Take 1 Tablet (5 mg) by mouth once daily. 90 Tablet 3 01/17/20 22 Active omeprazole (PRILOSEC) 20 mg Delayed-Release capsuleIndications :Gastroesophageal reflux disease, unspecified whether esophagitis present Take 1 Capsule (20 mg) by mouth once daily before a meal. Take 30-60 minutes before a meal/food once a day. 90 Capsule 3 05/19/20 22 Active multivitamins-mine rals-lutein (Multivitamin 50 Plus) tab tablet Take 1 Tablet by mouth once daily. Active acetaminophen (TYLENOL) 325 mg tabletIndications: Pain Take 2 Tablets (650 mg) by mouth every 4 hours if needed for Pain or Temp>101.5F (38.6C). Max acetaminophen dose: 4000mg in 24 hrs. 0 09/11/19 23 Active metoprolol tartrate (LOPRESSOR) 25 mg tabletIndications: HTN (hypertension) Take 1 Tablet (25 mg) by mouth two times daily. 0 09/11/19 23 Active PARoxetine (PAXIL) 30 mg tabletIndications: Social anxiety disorder,Mixed obsessional thoughts and acts TAKE 2 TABLETS BY MOUTH EVERY MORNING 60 Tablet 11/06/19 23 Active Antacid, calcium carbonate, 200 mg calcium (500 mg) chewable tablet Chew 500 mg by mouth once daily. 10/02/19 24 Active magnesium oxide (MAG-OX 400) 400 mg tablet Take 400 mg by mouth once daily. 10/01/19 24 Active tamsulosin (FLOMAX) 0.4 mg capsule Take 0.4 mg by mouth once daily after a meal. 10/01/19 24 Active torsemide (DEMADEX) 10 mg tablet Take 10 mg by mouth once daily. 10/01/19 24 Active clobetasol 0.05% (TEMOVATE 0.05% OINTMENT) 0.05 % ointment Apply topically to affected area(s) every Friday, Friday and Friday. For Eczema around ears and scalp spots 05/19/20 23 Active hydrocortisone 1 % creamIndications:R shantal Apply topically to affected area(s) 4 times daily if needed for Itching. 35 g 10/17/19 24 Active carbamide peroxide (Debrox) 6.5 % otic solution Place 4 Drops into both ears once daily if needed. Active bisacodyL (Dulcolax, bisacodyl,) 10 mg suppository Insert 10 mg rectally once daily if needed for Constipation. Active aluminum-magnesium hydroxide-simethic one (Eugenie-Lanta) 200-200-20 mg/5 mL suspension Take 15 mL by mouth 4 times daily if needed for GI Upset. Shake Well. Active Milk of Magnesia 400 mg/5 mL suspension Take 30 mL by mouth once daily if needed for Constipation. Active trimethoprim-sulfa methoxazole, 160-800 mg, (BACTRIM DS, SEPTRA DS) tabIndications:LANCE A (methicillin susceptible Staphylococcus aureus) infection,Chronic osteomyelitis (HC) Take 1 Tablet by mouth two times daily. 60 Tablet 1 01/02/20 24 024 Active warfarin (COUMADIN) 1 mg tabletIndications: Non-healing surgical wound, subsequent encounter Take 2 tablets (2 mg) tonight (01/04) then 3 tablets (3 mg) tomorrow (01/05) then based on INR check Friday on 01/06 your PCP office will give you further instruction on warfarin dosing. 20 Tablet 01/05/20 24 Active oxyCODONE-acetamin ophen (PERCOCET) 5-325 mg per tabletIndications: Non-healing surgical wound, subsequent encounter Take 1 Tablet by mouth every 4 hours if needed for Pain (For moderate to severe pain. To begin after epidural / PROGRAM COORDIN[employer] is discontinued.). Max acetaminophen dose: 4000mg in 24 hrs. 10 Tablet 01/05/20 24 Active diphenhydrAMINE (BENADRYL) 25 mg tablet Take 25 mg by mouth once daily. 024 Discontinued(*P atient states no longer taking) doxycycline 100 mg capsule Take 100 mg by mouth two times daily. 12/11/19 24 024 Discontinued(*I P Discontinued) warfarin (COUMADIN) 4 mg tablet Take 4 mg by mouth once daily. Take 4 mg by mouth on , , , Sa. Take 6 mg by mouth on Friday. Take 5 mg by mouth on Friday and . 024 Discontinued trimethoprim-sulfa methoxazole, 160-800 mg, (BACTRIM DS, SEPTRA DS) tabIndications:Abs cess of sternal region,MSSA (methicillin susceptible Staphylococcus aureus) infection Take 1 Tablet by mouth two times daily. 60 Tablet 1 12/16/19 24 024 Discontinued(*I P Discontinued) warfarin (COUMADIN) 4 mg tabletIndications: History of mitral valve replacement with mechanical valve Take 1 Tablet (4 mg) by mouth once daily. Take 4 mg by mouth on , , , Sa. Take 6 mg by mouth on Friday. Take 5 mg by mouth on Friday and . 12/18/19 24 024 Discontinued(*I P Discontinued) enoxaparin (Lovenox) 80 mg/0.8 mL injectionIndicatio ns:S/P MVR (mitral valve replacement) Inject 80 mg subcutaneous every 12 hours for 4 days. Last warfarin dose is 12/25/23. Starting 12/26/23 check INR and begin lovenox injections every 12 hours once INR is less than 2.5. Last injection should be no later than 8pm the night before surgery (12/29/23) 8 Each 12/25/19 24 024 oxyCODONE-acetamin ophen (PERCOCET) 5-325 mg per tabletIndications: Non-healing surgical wound, subsequent encounter Take 1 Tablet by mouth every 4 hours if needed for Pain (For moderate to severe pain. To begin after epidural / PROGRAM CO[employer] is discontinued.). Max acetaminophen dose: 4000mg in 24 hrs. 10 Tablet 01/05/20 24 024 Discontinued Active Problems Problem Noted Date Diagnosed Date Abscess of sternal region 12/12/2023 Multiple drug allergies 12/12/2023 Overview: Cefazolin (rash), nafcillin (liver trouble), Chronic osteomyelitis 12/12/2023 Overview: Sternum Non-healing surgical wound 12/12/2023 MSSA (methicillin susceptibl e Staphylococcus aureus) infection 12/12/2023 Abscess of sternal region 10/06/2023 Coag negative Staphylococcus bacteremia 08/19/19 23 Positive blood culture 08/18/2022 Fever 08/17/2022 At risk for healthcare associated infection 07/31 Shock liver 08/02/2022 Transaminitis 08/02/2022 At risk for infection 08/02/2022 S/P MVR (mitral valve replacement) 07/29/2022 Overview: MITRAL VALVE.[facility] MASTERS SERIES MECHANICAL HEART VALVE SZ 27MM. REF: [id number]. SN:[id number]. IMPLANTED BY DR. PARRISH Hypocalcemia 07/27/2022 Acute [...] PSA 07/26/2018 Overview: According to records from [place] he has had an elevated PSA the last several years. His PSA was 15 in 2012 and biopsy showed only inflammation. Screening for colon cancer 07/26/2018 Overview: He had a normal colonoscopy in 05/2015 in [place]. Next colonoscopy is due on 05/22/2025. Sensorineural [...] Encounters Date Type Department Care Team Description 01/06/2024 Orders Only [facility] [address] [place] [address] Nella Thomas PA <No scans attached> 01/05/2024 Orders Only [facility] [address] [place] [address] Shawna Thompson PA <No scans attached> 12/30/2023 10:17 AM CDT Anesthesia Event [facility] [address] [place] [address] Gerardo Hand MD Guenveur, Christina Marie, CRNA 12/30/2023 9:55 AM CDT - 12/30/2023 12:23 PM CDT Surgery [facility] [address] [place] [address] Jorge Parrish MD STERNAL WOUND EXPLORATION 12/30/2023 9:02 AM CDT - 01/05/2024 11:59 AM CDT Hospital Encounter [facility] [address] [place] [address] Jorge Parrish MD MSSA (methicillin susceptible Staphylococcus aureus) infection (Primary Dx); Chronic osteomyelitis (HC); Non-healing surgical wound, subsequent encounter; S/P MVR (mitral valve replacement); Urinary retention Discharge Disposition: Home Self Care 12/30/2023 Travel 12/25/2023 3:30 PM CDT Phone Office Visit [facility] [address] [facility] [address] [place] [phone] Nella Thomas PA Education (Pre OHS Education ) 12/24/2023 2:00 PM CDT Office Visit [facility] [address] [facility] [address] [place] [phone] Jorge Parrish MD CV General Cardiology Est (FU; TF CT SCAN; TO BE SEEN ONCE CT HAS BEEN READ//PCP: Travis Lynch MD ) 12/24/2023 10:51 AM CDT - 12/24/2023 11:59 PM CDT Hospital Encounter [facility] [address] [place] [address] Crystal Mora NP Abscess of sternal region 12/24/2023 Travel 12/19/2023 Telephone [facility] [address] [facility] [address] [place] [address] Ankur Javier MD 12/12/2023 12:21 PM CDT - 12/17/2023 12:10 PM CDT Hospital Encounter [facility] [address] [place] [address] Gab Escobar DO Abear, Paul Terry, MD Holen, MD Daysi Tyler, MD [facility] Robert Del, MD [facility], w Hospitalists Of Abscess of sternal region (Primary Dx); Cellulitis, unspecified cellulitis site; MSSA (methicillin susceptible Staphylococcus aureus) infection; History of mitral valve replacement with mechanical valve Discharge Disposition: Health Care Facility Not On List 12/12/2023 Travel 12/12/2023 Telephone [facility] [address] [place] [address] Nella Thomas PA Surgical Followup (Sternal wound concern, ?abscess formation? ) 11/28/2023 9:30 AM CDT Home Care Visit [facility] [address] [place] [address] Mckenna Morales, DEBBIE SN - OASIS DISCHARGE 11/20/2023 9:00 AM CDT Home Care Visit [facility] [address] [place] [phone] Anneliese Ng LPN JAVA CONSULTANT - HOME VISIT 11/13/2023 10:00 AM CDT Home Care Visit [facility] [address] [place] [phone] Anneliese Ng LPN JAVA CONSULTANT - HOME VISIT 11/12/2023 2:00 PM CDT Office Visit [facility] [address] [phone] Lucinda Solis PA CV General Cardiology Est ([place] change (per Shawna)//PCP: Travis Lynch MD/) 11/11/2023 9:45 AM CDT Home Care Visit [facility] [address] [place] [phone] Mckenna Morales, DEBBIE SN - HOME VISIT 11/11/2023 2:45 AM CDT Home Care Visit [facility] [address] [place] [phone] Liss De La Rosa RN SN - WOUND/OSTOMY CHART CONSULT 11/11/2023 Nurse Triage [address] [address] Travis Lynch MD Wound vac problem 11/10/2023 9:00 AM CDT Home Care Visit [facility] [address] [place] [address] Mckenna Morales, DEBBIE SN - WOUND LONG VISIT (>90 MINUTES) 11/07/2023 Home Care Visit [facility] [address] [place] [phone] Ambar Doshi RN CARE COORDINATION 11/06/2023 4:30 AM CDT Home Care Visit [facility] [address] [place] [phone] Travis Abel RN SN - MISSED VISIT 11/05/2023 3:00 PM CDT Office Visit [facility] [address] [facility] [address] [place] [address] Shawna Thompson PA CV General Cardiology Est (2 wk fu ; per pt re wound vac//PCP: Travis Lynch MD//) 11/05/2023 Travel 11/03/2023 8:30 AM CDT Home Care Visit [facility] [address] [place] [phone] Travis Abel, RN SN - WOUND LONG VISIT (>90 MINUTES) 10/30/2023 9:00 AM CDT Home Care Visit [facility] [address] [place] [phone] Anneliese Ng LPN JAVA CONSULTANT - LONG VISIT (>90 MINUTES) 10/30/2023 Orders Only [facility] [address] [facility] [place] [phone] Travis Ohara MD Lab 10/27/2023 10:00 AM CDT Home Care Visit [facility] [address] [place] [phone] Berenice, Anneliese M, JAVA CONSULTANT JAVA CONSULTANT - LONG VISIT (>90 MINUTES) 10/23/2023 8:30 AM CDT Home Care Visit [facility] [address] [place] [phone] Travis Abel RN SN - WOUND LONG VISIT (>90 MINUTES) 10/23/2023 Orders Only [facility] [address] [place] [address] Travis Ohara MD Lab 10/21/2023 12:45 AM CDT Home Care Visit [facility] [address] [place] [phone] Liss De La Rosa RN SN - WOUND/OSTOMY CHART CONSULT 10/20/2023 9:00 AM CDT Home Care Visit [facility] [address] [place] [address] Travis Abel RN SN - HOME VISIT 10/20/2023 Orders Only [facility] [address] [place] [phone] Travis Ohara MD Lab (Home care) 10/20/2023 Nurse Triage [facility] [address] [place] [address] Ajay Pink MD Home Care (Visit request) 10/20/2023 Patient Outreach [facility] [address] [place] [address] Aniyah Ellington RN Primary RN Care Management; Hospital F/U (LACE 76) 10/20/2023 Plan of Care Documentation [facility] [address] [place] [address] 10/19/2023 8:30 AM CDT Home Care Visit [facility] [address] [place] [phone] Elinor Cunha, RN SN - OASIS START OF CARE 10/06/2023 1:49 AM CDT - 10/17/2023 1:59 PM CDT Hospital Encounter [facility] [address] [place] [address] [facility], [facility] Hospitalists Of Sandra Hansen MBBS Draisey, Ashley Diane, DO Murray, Stephanie Negron MD Abscess of sternal region (Primary Dx); At risk for infection; Rash; S/P MVR (mitral valve replacement) Discharge Disposition: Home Health from Last 3 Months Immunizations Name Administration Dates Next Due COVID-19 vaccine ([employer] NT[employer] 30mcg/0.3mL) 12YO+ PROMISE-SUCROSE PF, MDV 10/26/2021 COVID-19 vaccine (Pfizer-BioNTech 30mcg/0.3mL) P F, MDV 10/07/2020,09/16/2020 Influenza RIV4 [...] of Communication with Friends and Fami ly 0 01/02/2024 Financial Resource Strain Answer Date R ecorded Difficulty of Paying Living Expenses 3 01/02/2024 Difficulty of Paying Living Expenses Not on file 01/02/2024 Food Insecurity Answer Date Recorded Worried About Running Out of Food in the Last Ye ar 1 01/02/2024 Transportation Needs Answer Date Record ed Lack of Transportation (Medical) 1 01/02/2024 Housing Stability Answer Date Recorded Unable to Pay for Housing in the Last Year 1 01/02/2024 Sex and Gender Information Value Date Recorded Sex Assigned at Not on file Gender Identity Not on file Sexual Orientation Not on file Obstetrics History Last Filed Vital Signs Vital Sign Reading Time Taken Comments Blood Pressure 109/55 01/05/2024 7:35 AM CDT Pulse 73 01/05/2024 7:35 AM CDT Temperature 36.9 ??C (98.5 ??F) 01/05/2024 7:35 AM CD T Respiratory Rate 18 01/05/2024 7:35 AM CDT Oxygen Saturation 95% 01/05/2024 7:35 AM CDT Inhaled Oxygen Concentration - - Weight 76.2 kg (168 lb) 01/05/2024 4:45 AM CDT Height 162.6 cm (5' 4) 12/30/2023 9:25 AM CDT Body Mass Index 28.84 12/30/2023 9:25 AM CDT Plan of Treatment Upcoming Encounters Date Type Department Care Team (Late st Contact Info) Description 01/21/2024 3:30 PM CDT Office Visit [facility] [address] [facility] [address] [place] [phone] Cassandra, McTs 02/03/2024 11:00 AM CDT Office Visit [facility] [address] [facility] [address] [place] [address] Travis Ohara MD [address] [facility] [address] [place] [address] 05/06/2024 12:15 PM COLLAR CLOSER LOCKSTITCH Office Visit [facility] [address] [place] [phone] Giovanni Mukherjee MD [address] [facility] [address] [place] [phone] Health Maintenance Due Date Last Done Comments Pneumococcal series for age 6-64 (1 of 2 - PCV) 1967 HIV for age 15-65 1976 Colonoscopy through age 75 2006 Zoster (shingles) series for age 50+ (1 of 2) 2011 Depression screening for age 12+ 01/16/2023 01/16/2022, 03/06/2021, 01/12/2020, Additional history exists COVID-19 vaccine series ( season) 2023 10/26/2021, 10/07/2020, 09/16/2020 Influenza for age 50-64 02/01/2024 07/21/2019 BMI (ht and wt on same day) for age 18+ 12/23/2024 12/24/2023, 11/12/2023, 11/05/2023, Additional history exists Lipids for age 45-75 07/22/2027 07/22/2022, 01/16/2022, 07/29/2018 Tetanus booster 08/15/2029 08/16/2019 Tdap Completed 08/16/2019 Hepatitis C screening for ag e 18-79 Completed 01/16/2022 Medical Devices Implanted Type Area [employer] Supervisor Device Identifier Shelf Expiration Date Model / Serial / Lot Valve Mitral 27mm [employer] - [id number] Implanted:Qty: 1 on 07/29/2022 by Jorge Parrish MD at [facility] N/A: Mitral Valve [facility] 04/17/2027 [id number] / [id number] / Procedures Procedure Name Priority Date/Time Associated Diagnosis Comments SCAN-CARDIAC STRIP 01/05/2024 7: 18 AM CDT PROTIME-INR Early AM 01/05/2024 6:24 AM CDT SCAN-CARDIAC STRIP 01/05/2024 1: 56 AM CDT SCAN-CARDIAC STRIP 01/04/2024 4: 00 PM CDT SCAN-CARDIAC STRIP 01/04/2024 10 :00 AM CDT APTT Timed 01/04/2024 7:47 AM CDT PROTIME-INR Early AM 01/04/2024 7:47 AM CDT HEMATOCRIT Early AM 01/04/2024 7:47 AM CDT HEMOGLOBIN Early AM 01/04/2024 7:47 AM CDT PLATELET COUNT Early AM 01/04/2024 7:47 AM CDT APTT Timed 01/04/2024 1:11 AM CDT APTT Timed 01/03/2024 5:42 PM CDT SCAN-CARDIAC STRIP 01/03/2024 5: 35 PM CDT SCAN-CARDIAC STRIP 01/03/2024 10 :46 AM CDT APTT Timed 01/03/2024 10:32 AM CDT SCAN-CARDIAC STRIP 01/03/2024 7: 56 AM CDT APTT Timed 01/03/2024 4:39 AM CDT PROTIME-INR Early AM 01/03/2024 4:39 AM CDT HEMATOCRIT Early AM 01/03/2024 4:39 AM CDT HEMOGLOBIN Early AM 01/03/2024 4:39 AM CDT PLATELET COUNT Early AM 01/03/2024 4:39 AM CDT SCAN-CARDIAC STRIP 01/03/2024 12 :54 AM CDT SCAN-CARDIAC STRIP 01/02/2024 9: 33 PM CDT APTT Today 01/02/2024 9:24 PM CDT APTT Today 01/02/2024 2:27 PM CDT SCAN-CARDIAC STRIP 01/02/2024 8: 50 AM CDT PROTIME-INR KIRK 01/02/2024 5:57 AM CDT APTT Early AM 01/02/2024 5:57 AM CDT CREATININE Early AM 01/02/2024 5:57 AM CDT POTASSIUM Early AM 01/02/2024 5:57 AM CDT SODIUM Early AM 01/02/2024 5:57 AM CDT HEMATOCRIT Early AM 01/02/2024 5:57 AM CDT HEMOGLOBIN Early AM 01/02/2024 5:57 AM CDT PLATELET COUNT Early AM 01/02/2024 5:57 AM CDT SCAN-CARDIAC STRIP 01/01/2024 7: 31 PM CDT SCAN-CARDIAC STRIP 01/01/2024 7: 31 PM CDT XR CHEST 2 VIEWS PA AND LATERAL Routine 01/01/2024 6:57 PM CDT PROTIME-INR Early AM 01/01/2024 9:32 AM CDT APTT Timed 01/01/2024 9:32 AM CDT SCAN-CARDIAC STRIP 01/01/2024 9: 27 AM CDT SCAN-CARDIAC STRIP 01/01/2024 9: 27 AM CDT SCAN-CARDIAC STRIP 01/01/2024 8: 35 AM CDT SCAN-CARDIAC STRIP 01/01/2024 8: 16 AM CDT CBC W PLT NO DIFF Early AM 01/01/2024 4:4 2 AM CDT BASIC METABOLIC PANEL Early AM 01/01/2024 4:42 AM CDT APTT Timed 01/01/2024 1:28 AM CDT PLATELET COUNT KIRK 12/31/2023 6:21 PM CDT EXTRA TUBE LIGHT GREEN Today 12/31/2023 6:20 PM CDT APTT KIRK 12/31/2023 6:20 PM CDT SCAN-CARDIAC STRIP 12/31/2023 2: 57 PM CDT PROTIME-INR Timed 12/31/2023 10:38 AM CDT SCAN-CARDIAC STRIP 12/31/2023 7: 34 AM CDT HEMOGLOBIN KIRK 12/31/2023 1:08 AM CDT SCAN-CARDIAC STRIP 12/30/2023 8: 17 PM CDT XR CHEST 1 VIEW PORTABLE STAT 12/30/2023 12:44 PM CDT HARDWARE CULTURE , STAIN Today 12/30/2023 11:21 AM CDT AEROBIC BACTERIAL CULTURE, STAIN Today 12/30/2023 11:06 AM CDT AFB CULTURE, STAIN Today 12/30/2023 11 :06 AM CDT ANAEROBIC CULTURE Today 12/30/2023 11: 06 AM CDT ENDOTRACHEAL TUBE Routine 12/30/2023 10: 53 AM CDT ENDOTRACHEAL TUBE Routine 12/30/2023 10: 53 AM CDT ENDOTRACHEAL TUBE Routine 12/30/2023 10: 53 AM CDT RBC W/O TYPE & SCREEN STAT 12/30/2023 10:08 AM CDT DEBRIDEMENT STERNAL WOUND 12/30/2023 10:05 AM CDT sternal wound infection Case Notes STERNAL WOUND EXPLORATION, POSS PARTIAL STERNECTOMY PROTIME-INR STAT 12/30/2023 9:36 AM CDT RED BLOOD CELLS EA UNIT STAT 12/30/2023 9:30 AM CDT RED BLOOD CELLS EA UNIT STAT 12/30/2023 9:30 AM CDT TYPE & SCREEN Preop 12/30/2023 9:30 AM CDT GLUCOSE, FASTING Preop 12/30/2023 9:30 AM CDT SCAN-CARDIAC STRIP 12/30/2023 12 :[address] CHEST W KIRK 12/24/2023 11:16 AM CDT Abscess of sternal region PROTIME-INR Early AM 12/17/2023 8:21 AM CDT CREATININE Early AM 12/16/2023 7:53 AM CDT POTASSIUM Early AM 12/16/2023 7:53 AM CDT SODIUM Early AM 12/16/2023 7:53 AM CDT PLATELET COUNT Early AM 12/16/2023 7:53 AM CDT HEMOGLOBIN Early AM 12/16/2023 7:53 AM CDT PROTIME-INR Early AM 12/16/2023 7:53 AM CDT CBC WITH AUTO DIFFERENTIAL Today 12/15/2023 11:00 AM CDT BASIC METABOLIC PANEL Timed 12/15/2023 11:00 AM CDT CBC WITH AUTO DIFFERENTIAL Today 12/15/2023 11:00 AM CDT PROTIME-INR Early AM 12/15/2023 8:22 AM CDT PROTIME-INR Early AM 12/14/2023 7:36 AM CDT BLOOD CULTURE STAT 12/13/2023 3:24 PM CDT BLOOD CULTURE STAT 12/13/2023 3:21 PM CDT CK TOTAL KIRK 12/13/2023 7:47 AM CDT PROTIME-INR Early AM 12/13/2023 7:47 AM CDT CBC W PLT NO DIFF Early AM 12/13/2023 7:4 7 AM CDT BASIC METABOLIC PANEL Early AM 12/13/2023 7:47 AM CDT PROTIME-INR KIRK 12/12/2023 4:51 PM CDT AEROBIC BACTERIAL CULTURE, STAIN STAT 12/12/2023 2:[address] CHEST W STAT 12/12/2023 2:01 PM CDT LACTATE SCREEN VENOUS ISTAT W ACRMONA STAT 12/12/2023 12:52 PM CDT EXTRA TUBE CARMONA ON ICE STAT 12/12/2023 12:40 PM CDT ISTAT LACTATE SCREEN VENOUS STAT 12/12/2023 12:40 PM CDT C-REACTIVE PROTEIN STAT 12/12/2023 12 :40 PM CDT BASIC METABOLIC PANEL STAT 12/12/2023 12:40 PM CDT CBC W PLT NO DIFF STAT 12/12/2023 12: 40 PM CDT CBC WITH AUTO DIFFERENTIAL Routine 10/30/2023 9:24 AM CDT Abscess of sternal region CBC WITH AUTO DIFFERENTIAL Routine 10/30/2023 9:24 AM CDT Abscess of sternal region CBC WITH AUTO DIFFERENTIAL Routine 10/23/2023 9:45 AM CDT Abscess of sternal region CBC WITH AUTO DIFFERENTIAL Routine 10/23/2023 9:45 AM CDT Abscess of sternal region PLATELET COUNT Early AM 10/17/2023 6:23 AM CDT PROTIME-INR Early AM 10/17/2023 6:23 AM CDT PSA TOTAL (DIAGNOSTIC) KIRK 10/16/2023 6:21 AM CDT CREATININE Early AM 10/16/2023 6:21 AM CDT POTASSIUM Early AM 10/16/2023 6:21 AM CDT SODIUM Early AM 10/16/2023 6:21 AM CDT PROTIME-INR Early AM 10/16/2023 6:[address] ABDOMEN PELVIS UROGRAM WWO Routine 10/15/2023 5:16 PM CDT URINALYSIS MICROSCOPIC Timed 10/15/2023 11:40 AM CDT URINE CULTURE Today 10/15/2023 11:40 AM CDT UA W/ SEDIMENT EXAM REFLEXED PER CRITERIA Today 10/15/2023 11:40 AM CDT EXTRA TUBE LAVENDER Today 10/15/2023 5 :18 AM CDT SODIUM Early AM 10/15/2023 4:53 AM CDT POTASSIUM Early AM 10/15/2023 4:53 AM CDT CREATININE Early AM 10/15/2023 4:53 AM CDT PROTIME-INR Early AM 10/15/2023 4:53 AM CDT PROTIME-INR Early AM 10/14/2023 5:07 AM CDT SCAN-CARDIAC STRIP 10/14/2023 1: 28 AM CDT PROTIME-INR Today 10/13/2023 1:10 PM CDT SCAN-CARDIAC STRIP 10/13/2023 1: 51 AM CDT LIPID PANEL Early AM 07/22/2022 3:56 AM COLLAR CLOSER LOCKSTITCH ANTI HCV Routine 01/16/2022 3:28 PM CDT Need for hepatitis C screening test from Last 3 Months or Most Recently Relevant to Health Maintenance Results * SCAN-CARDIAC STRIP (01/05/2024 7:18 AM CDT) Scanner OTHER * (ABNORMAL) PROTIME-INR (01/05/2024 6:24 AM CDT) Only the most recent of18 resultswithin the time period is included. INR 3.3(H) <1.3 01/05/2024 7:00 AM CDT [facility] PROTIME 35.4(H) 10.3 - 12.3 sec 01/05/2024 7:00 AM CDT [facility] Blood BLOOD SPECIMEN / Unknown Venipuncture / Unknown 01/05/2024 6:24 AM CDT 01/05/2024 6:39 AM CDT Narrative [facility] - 01/05/2024 7:00 AM CDT ?Therapeutic Range 2.0-3.0 for most [...] seconds if the patient is on UFH. Nigel TUCKER HEMATOLOGY [facility] [address] [place] [address], * SCAN-CARDIAC STRIP (01/05/2024 1:56 AM CDT) Scanner OTHER * SCAN-CARDIAC STRIP (01/04/2024 4:00 PM CDT) Scanner OTHER * SCAN-CARDIAC STRIP (01/04/2024 10:00 AM CDT) Scanner OTHER * PLATELET COUNT (01/04/2024 7:47 AM CDT) Only the most recent of6 resultswithin the time period is included. PLATELET COUNT 316 140 - 440 thou/cu mm 01/04/2024 8:34 AM CDT [facility] MPV 8.9 6.5 - 11.0 fL 01/04/2024 8:34 AM CDT [facility] Blood BLOOD SPECIMEN / Unknown Venipuncture / Unknown 01/04/2024 7:47 AM CDT 01/04/2024 8:23 AM CDT Narrative [facility] - 01/04/2024 8:34 AM CDT Every morning while on IV heparin. Every morning while on IV heparin. Necessary every morning while on IV heparin. Juliette Elizondo NP HEMATOLOGY Performing Organization Address [facility] de Phone Number [facility] [address] [place] [address], * (ABNORMAL) HEMOGLOBIN (01/04/2024 7:47 AM CDT) Only the most recent of5 resultswithin the time period is included. Pathologist [facility] HEMOGLOBIN 10.7(L) 13.5 - 17.5 g/dL 01/04/2024 8:34 AM CDT [facility] MCV 81 80 - 100 fL 01/04/2024 8:34 AM CDT [facility] Blood BLOOD SPECIMEN / Unknown Venipuncture / Unknown 01/04/2024 7:47 AM CDT 01/04/2024 8:23 AM CDT Narrative [facility] - 01/04/2024 8:34 AM CDT Every morning while on IV heparin. Every morning while on IV heparin. Necessary every morning while on IV heparin. Juliette Elizondo NP HEMATOLOGY Performing Organization Address [facility]/ZIP Co de Phone Number [facility] [address] [place] [address], * (ABNORMAL) HEMATOCRIT (01/04/2024 7:47 AM CDT) Only the most recent of3 resultswithin the time period is included. HEMATOCRIT 34.8(L) 37.0 - 53.0 % 01/04/2024 8:34 AM CDT [facility] Blood BLOOD SPECIMEN / Unknown Venipuncture / Unknown 01/04/2024 7:47 AM CDT 01/04/2024 8:23 AM CDT Narrative [facility] - 01/04/2024 8:34 AM CDT Every morning while on IV heparin. Every morning while on IV heparin. Necessary every morning while on IV heparin. Juliette Elizondo NP HEMATOLOGY Performing Organization Address [facility] Co de Phone Number [facility] [address] [place] [address], * (ABNORMAL) APTT (01/04/2024 7:47 AM CDT) Only the most recent of11 resultswithin the time period is included. APTT 54(H) 28 - 36 sec 01/04/2024 8:45 AM CDT [facility] Blood BLOOD SPECIMEN / Unknown Venipuncture / Unknown 01/04/2024 7:47 AM CDT 01/04/2024 8:23 AM CDT Narrative [facility] - 01/04/2024 8:45 AM CDT Therapeutic Range: 57-87 seconds Giovanni Mukherjee MD HEMATOLOGY Performing Organization Address [facility] Co de Phone Number [facility] [address] [place] [address], * SCAN-CARDIAC STRIP (01/03/2024 5:35 PM CDT) Scanner OTHER * SCAN-CARDIAC STRIP (01/03/2024 10:46 AM CDT) Scanner OTHER * SCAN-CARDIAC STRIP (01/03/2024 7:56 AM CDT) Scanner OTHER * SCAN-CARDIAC STRIP (01/03/2024 12:54 AM CDT) Scanner OTHER * SCAN-CARDIAC STRIP (01/02/2024 9:33 PM CDT) Scanner OTHER * SCAN-CARDIAC STRIP (01/02/2024 8:50 AM CDT) Scanner OTHER * SODIUM (01/02/2024 5:57 AM CDT) Only the most recent of4 resultswithin the time period is included. SODIUM 136 136 - 145 mmol/L 01/02/2024 7:08 AM CDT [facility] Blood BLOOD SPECIMEN / Unknown Venipuncture / Unknown 01/02/2024 5:57 AM CDT 01/02/2024 6:34 AM CDT Giovanni Mukherjee MD CHEMISTRY Performing Organization Address [facility] Co de Phone Number [facility] [address] [place] [address], [place] * POTASSIUM (01/02/2024 5:57 AM CDT) Only the most recent of4 resultswithin the time period is included. POTASSIUM 4.9 3.5 - 5.1 mmol/L 01/02/2024 7:08 AM CDT [facility] Blood BLOOD SPECIMEN / Unknown Venipuncture / Unknown 01/02/2024 5:57 AM CDT 01/02/2024 6:34 AM CDT Giovanni Mukherjee MD CHEMISTRY Performing Organization Address City/[facility] Co de Phone Number [facility] [address] [place] [address], * (ABNORMAL) CREATININE (01/02/2024 5:57 AM CDT) Only the most recent of4 resultswithin the time period is included. eGFR 87(L) >90 mL/min/1.7 3m2 01/02/2024 7:08 AM CDT [facility] Comment:As of 2021, eG FR is calculated by the CKD-EPI creatinine equation without race adjustment. ??eGFR can be influenced by muscle mass, exercise, and diet. ??The reported eGFR is an estimation only and is only applicable if the renal function is stable. CREATININE 0.98 0.70 - 1.20 mg/dL 01/02/2024 7:08 AM CDT [facility] Blood BLOOD SPECIMEN / Unknown Venipuncture / Unknown 01/02/2024 5:57 AM CDT 01/02/2024 6:34 AM CDT Giovanni Mukherjee MD CHEMISTRY [facility] [address] [place] [address], * SCAN-CARDIAC STRIP (01/01/2024 7:31 PM CDT) Scanner OTHER * SCAN-CARDIAC STRIP (01/01/2024 7:31 PM CDT) Scanner OTHER * XR CHEST 2 VIEWS PA AND LATERAL (01/01/2024 6:57 PM CDT) Anatomical Region Laterality Modality CHEST, THORAX, Lung, HEART Digit al Radiography 01/03/2024 7:58 AM CDT Narrative 01/03/2024 7:58 AM CDT For Patients: ??As a result of the 21st Century Cures Act, medical imaging exams and procedure reports are released immediately into your electronic medical record. ??You may view this report before your referring provider. ??If you have questions, please contact your health care provider. Indication: Postop evaluation. Pleural effusion. Technique: Chest 2 views. Comparison: 12/30/2023. Findings/Impression: Cardiovascular and mediastinum: ??Heart size and vasculature are normal in caliber and appearance. ?? Lungs and pleural spaces: ??Lungs are clear. ??No sign of infiltrate or mass. ??No sign of pleural effusion. ??No pneumothorax. ?? Bones and soft tissues: ??No significant findings. Dictated by Angel Roe MD @ Dec ??2023 ??7:58AM (Electronically Signed) [email or web address] Procedure Note Angel Roe MD - 01/03/2024 For Patients: As a result of the Cures Act, medical imagingexams and procedure reports are released immediately into your electronicmedical record. You may view this report before your referring provider.If you have questions, please contact your health care provider. Indication: Postop evaluation. Pleural effusion. Technique: Chest 2 views. Comparison: 12/30/2023. Findings/Impression: Cardiovascular and mediastinum: Heart size and vasculature are normal incaliber and appearance. Lungs and pleural spaces: Lungs are clear. No sign of infiltrate ormass. No sign of pleural effusion. No pneumothorax. Bones and soft tissues: No significant findings. Dictated by Angel Roe MD @ Jan 03 2024 7:58AM (Electronically Signed) [email or web address] Juliette Elizondo NP GENERAL IMAGING * SCAN-CARDIAC STRIP (01/01/2024 9:27 AM CDT) Scanner OTHER * SCAN-CARDIAC STRIP (01/01/2024 9:27 AM CDT) Scanner OTHER * SCAN-CARDIAC STRIP (01/01/2024 8:35 AM CDT) Scanner OTHER * SCAN-CARDIAC STRIP (01/01/2024 8:16 AM CDT) Scanner OTHER * (ABNORMAL) CBC W PLT NO DIFF (01/01/2024 4:42 AM CDT) Only the most recent of3 resultswithin the time period is included. WHITE BLOOD COUNT 7.0 4.5 - 11.0 thou/cu mm 01/01/2024 5:31 AM CDT [facility] RED BLOOD COUNT 4.14(L) 4.30 - 5.90 mil/cu mm 01/01/2024 5:31 AM CDT [facility] HEMOGLOBIN 10.3(L) 13.5 - 17.5 g/dL 01/01/2024 5:31 AM CDT [facility] HEMATOCRIT 33.6(L) 37.0 - 53.0 % 01/01/2024 5:31 AM CDT [facility] MCV 81 80 - 100 fL 01/01/2024 5:31 AM CDT [facility] MCH 24.9(L) 26.0 - 34.0 pg 01/01/2024 5:31 AM CDT [facility] MCHC 30.7(L) 32.0 - 36.0 g/dL 01/01/2024 5:31 AM T [facility] RDW 18.0(H) 11.5 - 15.5 % 01/01/2024 5:31 AM CDT [facility] PLATELET COUNT 292 140 - 440 thou/cu mm 01/01/2024 5:31 AM CDT [facility] MPV 9.2 6.5 - 11.0 fL 01/01/2024 5:31 AM CDT [facility] NRBC 0.0 % 01/01/2024 5:31 AM CDT [facility] ABS NRBC 0.0 thou /cu mm 01/01/2024 5:31 AM T [facility] Blood BLOOD SPECIMEN / Unknown Venipuncture / Unknown 01/01/2024 4:42 AM CDT 01/01/2024 5:18 AM CDT Juliette Racelia Elizondo SAM HEMATOLOGY [facility] [address] [place] [address], * (ABNORMAL) BASIC METABOLIC PANEL (01/01/2024 4:42 AM CDT) Only the most recent of4 resultswithin the time period is included. SODIUM 137 136 - 145 mmol/L 01/01/2024 5:51 AM CDT [facility] POTASSIUM 4.6 3.5 - 5.1 mmol/L 01/01/2024 5:51 AM CDT [facility] CHLORIDE 107 98 - 107 mmol/L 01/01/2024 5:51 AM CDT [facility] CO2,TOTAL 20(L) 22 - 29 mmol/L 01/01/2024 5:51 AM CDT [facility] ANION GAP 10 5 - 18 01/01/2024 5:51 AM CDT [facility] GLUCOSE 90 70 - 99 mg/dL 01/01/2024 5:51 AM CDT [facility] CALCIUM 8.8 8.8 - 10.2 mg/dL 01/01/2024 5:51 AM CDT [facility] BUN 23 8 - 23 mg/dL 01/01/2024 5:51 AM CDT [facility] CREATININE 1.14 0.70 - 1.20 mg/dL 01/01/2024 5:51 AM CDT [facility] BUN/CREAT RATIO 20 10 - 20 5:51 AM CDT [facility] eGFR 73(L) >90 mL/min/1.7 3m2 01/01/2024 5:51 AM CDT [facility] Comment:As of 2021, eG FR is calculated by the CKD-EPI creatinine equation without race adjustment. ??eGFR can be influenced by muscle mass, exercise, and diet. ??The reported eGFR is an estimation only and is only applicable if the renal function is stable. Blood BLOOD SPECIMEN / Unknown Venipuncture / Unknown 01/01/2024 4:42 AM CDT 01/01/2024 5:18 AM CDT Juliette Elizondo NEPHROLOGY SOCIAL WORKER CHEMISTRY Performing Organization Address [facility] Co de Phone Number [facility] [address] [place] [address], * EXTRA TUBE LIGHT GREEN (12/31/2023 6:20 PM CDT) Blood BLOOD SPECIMEN / Unknown Non-Lab Venipuncture / Unknown 12/31/2023 6:20 PM CDT 12/31/2023 6:30 PM CDT Jorge Parrish MD LABORATORY Performing Organization Address [facility] Co de Phone Number [facility] [address] [place] [address], * SCAN-CARDIAC STRIP (12/31/2023 2:57 PM CDT) Scanner OTHER * SCAN-CARDIAC STRIP (12/31/2023 7:34 AM CDT) Scanner OTHER * SCAN-CARDIAC STRIP (12/30/2023 8:17 PM CDT) Scanner OTHER * XR Chest- Portable (12/30/2023 12:44 PM CDT) Anatomical Region Laterality Modality HEART, THORAX, CHEST Digital Rad iography 12/30/2023 1:10 PM CDT Impressions 12/30/2023 1:10 PM CDT 1. Shallow inspiration with crowded markings. 2. Possible venous congestion. 3. Prosthetic heart valve. Dictated by Akil Johnson MD @ Dec 30 2023 ??1:10PM (Electronically Signed) [email or web address] Narrative 12/30/2023 1:10 PM CDT For Patients: ??As a result of the Century Cures Act, medical imaging exams and procedure reports are released immediately into your electronic medical record. ??You may view this report before your referring provider. ??If you have questions, please contact your health care provider. INDICATION: Post procedure TECHNIQUE: Semi upright portable AP image of the chest. COMPARISON: 10/06/2023 FINDINGS: Lungs low in volume with crowded markings. No obvious infiltrate. No pneumothorax or pleural effusion. Prosthetic heart valve. Heart size grossly normal, allowing for shallow inspiration. Possible venous congestion. No significant osseous abnormality. Procedure Note Akil Johnson MD - 12/30/2023 For Patients: As a result of the Century Cures Act, medical imagingexams and procedure reports are released immediately into your electronicmedical record. You may view this report before your referring provider.If you have questions, please contact your health care provider. INDICATION: Post procedure TECHNIQUE: Semi upright portable AP image of the chest. COMPARISON: 10/06/2023 FINDINGS: Lungs low in volume with crowded markings. No obvious infiltrate. Nopneumothorax or pleural effusion. Prosthetic heart valve. Heart sizegrossly normal, allowing for shallow inspiration. Possible venouscongestion. No significant osseous abnormality. IMPRESSION: 1. Shallow inspiration with crowded markings. 2. Possible venous congestion. 3. Prosthetic heart valve. Dictated by Akil Johnson MD @ Dec 30 2023 1:10PM (Electronically Signed) [email or web address] Mora NEPHROLOGY SOCIAL WORKER GENERAL IMAGING * HARDWARE CULTURE , STAIN (12/30/2023 11:21 AM CDT) CULTURE No Growth. 01/04/2024 10:46 AM CDT [facility] GRAM STAIN No Epithelial cells 01/04/2024 10:46 AM CDT [facility] GRAM STAIN 3+ RBCs 01/04/2024 10:46 AM CDT [facility] GRAM STAIN No PMNs 01/04/2024 10:46 AM CDT [facility] GRAM STAIN No organisms seen 01/04/2024 10:46 AM CDT [facility] Hardware/Explant SPECIMEN FROM BONE / Unknown Non-Blood / Unknown 12/30/2023 11:21 AM CDT 12/30/2023 12:01 PM CDT Jorge Parrish MD MICROBIOLOGY [facility] [address] [place] [address], * AEROBIC BACTERIAL CULTURE, STAIN (12/30/2023 11:06 AM CDT) Only the most recent of2 resultswithin the time period is included. CULTURE No Growth. 01/02/2024 8:59 AM CDT [facility] GRAM STAIN No Epithelial cells 01/02/2024 8:59 AM CDT [facility] GRAM STAIN 4+ RBCs 01/02/2024 8:59 AM CDT [facility] GRAM STAIN No PMNs 01/02/2024 8:59 AM CDT [facility] GRAM STAIN No organisms seen 01/02/2024 8:59 AM CDT [facility] Swab SPECIMEN FROM BONE / Unknown Non-Blood / Unknown 12/30/2023 11:06 AM CDT 12/30/2023 12:01 PM CDT Jorge Parrish MD MICROBIOLOGY Performing Organization Address [facility] Co de Phone Number [facility] [address] [place] [address], * ANAEROBIC CULTURE (12/30/2023 11:06 AM CDT) CULTURE No anaerobes isolated 01/05/2024 1:51 PM CDT [facility] Swab SPECIMEN FROM BONE / Unknown Non-Blood / Unknown 12/30/2023 11:06 AM CDT 12/30/2023 12:01 PM CDT Jorge Parrish MD MICROBIOLOGY Performing Organization Address City/[facility]/ZIP Co de Phone Number [facility] [address] [place] [address], * HCHG TUBE PR1, HCHG STYLET PR1, HCHG MOUTHPIECE PR1 (12/30/2023 10:53 AM CDT) Narrative Anneliese Okeefe CRNA - 12/30/2023 10:53 AM CDT Anneliese Okeefe CRNA ? 12/30/2023 10:54 AM Procedure: ETT Patient location during procedure: OR ETT Properties Mask Ventilation: easy Final Technique: direct laryngoscopy Type: straight Location: oral Cuffed: yes Tube Size: 7.5 mm Stylet: yes Laryngoscope Blade: Hsu Blade Size: 2 Cormack-Lehane Grade View: 1 Insertion Attempts: 1 Placement Verification: auscultation, end tidal CO2 and symmetrical chest wall movement Assessment: pharynx clear, atraumatic and dentition unchanged Secured at: 22 Measured From: teeth Tooth guard used and removed: yes Difficulty: 0 (not difficult) Gerardo Hand MD ANESTHESIA PX NOTE ORDERABLES * RBC W/O TYPE & SCREEN (12/30/2023 10:08 AM CDT) QUANTITY 2 12/30/2023 10:08 AM CDT [facility] B[facility] Blood BLOOD SPECIMEN / Unknown 12/30/2023 9:44 AM CDT Jorge Parrish MD BLOOD BANK [facility] [address] [place] [address], * Type and Screen (12/30/2023 9:30 AM CDT) ABORH O Rh Positive 12/30/2023 10:42 AM CDT [facility] ANTIBODY SCREEN Negative Negative 12/30/2023 10:42 AM CDT [facility] SPECIMEN EXPIRATION DATE/TIME 01/02/24 23:59 12/30/2023 10:42 AM CDT [facility]-C[facility]TRAL LAB BLOOD BANK Blood BLOOD SPECIMEN / Unknown Venipuncture / Unknown 12/30/2023 9:30 AM CDT 12/30/2023 9:46 AM CDT Nella TUCKER BLOOD BANK Performing Organization Address [facility]/ZIP Co de Phone Number [facility] [address] [place] [address], * (ABNORMAL) Glucose, Fasting (12/30/2023 9:30 AM CDT) GLUCOSE 129(H) 70 - 99 mg/dL 12/30/2023 10:46 AM CDT [facility] Blood BLOOD SPECIMEN / Unknown Venipuncture / Unknown 12/30/2023 9:30 AM CDT 12/30/2023 9:46 AM CDT Nella TUCKER CHEMISTRY Performing Organization Address [facility] Co de Phone Number [facility] [address] [place] [address], * RED BLOOD CELLS EA UNIT (12/30/2023 9:30 AM CDT) Only the most recent of2 resultswithin the time period is included. CROSSMATCH Compatible Compatible [email or web address] [place] [facility] PRODUCT BLOOD TYPE O Rh Positive [facility] PRODUCT ID NUMBER [id number] [facility] [email or web address] [place] [facility] PRODUCT STATUS /Relea sed [facility] [place] [facility] PRODUCT DESCRIPTION RBC -1 LR [facility] PRODUCT CODE [id number] [facility] Jorge Parrish MD BLOOD BANK Performing Organization Address [facility]/ZIP Co de Phone Number [facility] [address] [place] [address], * SCAN-CARDIAC STRIP (12/30/2023 12:00 AM CDT) Narrative 12/30/2023 12:00 AM CDT Ordered by an unspecified provider. Other Clinical Staff OTHER * CT CHEST W (12/24/2023 11:16 AM CDT) Only the most recent of2 resultswithin the time period is included. Anatomical Region Laterality Modality CHEST, THORAX, HEART Computed To mography 12/24/2023 12:2 8 PM CDT Addenda Addendum by Angel Roe MD on 12/24/2023 12:30 PM CDT For Patients: ??As a result of the Cures Act, medical imaging exams and procedure reports are released immediately into your electronic medical record. ??You may view this report before your referring provider. ?? If you have questions, please contact your health care provider. INDICATION: Abscess of sternal region. TECHNIQUE: CT chest with 80 cc Omnipaque 350 IV contrast. COMPARISON: 12/12/2023. FINDINGS: Lungs and pleura: No suspicious nodules or infiltrates. ??No pleural effusions, pleural thickening, or pneumothorax. Heart and vasculature: Heart size is normal. Thoracic aorta and pulmonary artery are normal in caliber. Lymph nodes/mediastinum: Interval resolution of the previously seen presternal abscess. A small amount of soft tissue thickening persists in this area. Chest wall: No masses. Upper abdomen: Normal. Bones: Unremarkable for age. IMPRESSION: Resolved presternal abscess with a small amount of soft tissue thickening persistent in this region. Indolent osteomyelitis in the sternum is not excluded. No new abnormalities. Please note that all CT scans at this facility use dose modulation, iterative reconstruction, and/or weight-based dosing when appropriate to reduce radiation dose to as low as reasonably achievable. Dictated by Angel Roe MD @ 12/24/2023 12:28:42 PM (Electronically Signed) Impressions 12/24/2023 12:28 PM CDT Resolved presternal abscess with a small amount of soft tissue thickening persistent in this region. Indolent osteomyelitis in the sternum is not excluded. No new abnormalities. Please note that all CT scans at this facility use dose modulation, iterative reconstruction, and/or weight-based dosing when appropriate to reduce radiation dose to as low as reasonably achievable. Dictated by Angel Roe MD @ 12/24/2023 12:28:42 PM (Electronically Signed) Narrative 12/24/2023 12:28 PM CDT For Patients: ??As a result of the Cures Act, medical imaging exams and procedure reports are released immediately into your electronic medical record. ??You may view this report before your referring provider. ??If you have questions, please contact your health care provider. INDICATION: Abscess of sternal region. TECHNIQUE: CT chest with 80 cc Omnipaque 350 IV contrast. COMPARISON: 12/12/2023. FINDINGS: Lungs and pleura: No suspicious nodules or infiltrates. ??No pleural effusions, pleural thickening, or pneumothorax. Heart and vasculature: Heart size is normal. Thoracic aorta and pulmonary artery are normal in caliber. Lymph nodes/mediastinum: Interval resolution of the previously seen presternal abscess. A small amount of soft tissue thickening persists in this area. Chest wall: No masses. Upper abdomen: Normal. Bones: Unremarkable for age. Procedure Note Angel oRe MD - 12/24/2023 For Patients: As a result of the Cures Act, medical imagingexams and procedure reports are released immediately into your electronicmedical record. You may view this report before your referring provider.If you have questions, please contact your health care provider. INDICATION: Abscess of sternal region. TECHNIQUE: CT chest with 80 cc Omnipaque 350 IV contrast. COMPARISON: 12/12/2023. FINDINGS: Lungs and pleura: No suspicious nodules or infiltrates. No pleuraleffusions, pleural thickening, or pneumothorax. Heart and vasculature: Heart size is normal. Thoracic aorta and pulmonaryartery are normal in caliber. Lymph nodes/mediastinum: Interval resolution of the previously seenpresternal abscess. A small amount of soft tissue thickening persists inthis area. Chest wall: No masses. Upper abdomen: Normal. Bones: Unremarkable for age. IMPRESSION: Resolved presternal abscess with a small amount of soft tissue thickeningpersistent in this region. Indolent osteomyelitis in the sternum is notexcluded. No new abnormalities. Please note that all CT scans at this facility use dose modulation,iterative reconstruction, and/or weight-based dosing when appropriate toreduce radiation dose to as low as reasonably achievable. Dictated by Angel Roe MD @ 12/24/2023 12:28:42 PM (Electronically Signed) Crystal Caldwellimtiaz NEPHROLOGY SOCIAL WORKER CT * (ABNORMAL) CBC WITH AUTO DIFFERENTIAL (12/15/2023 11:00 AM CDT) Only the most recent of3 resultswithin the time period is included. WHITE BLOOD COUNT 8.4 4.5 - 11.0 thou/cu mm 12/15/2023 11:37 AM CDT [facility] RED BLOOD COUNT 3.84(L) 4.30 - 5.90 mil/cu mm 12/15/2023 11:37 AM CDT [facility] HEMOGLOBIN 9.3(L) 13.5 - 17.5 g/dL 12/15/2023 11:37 AM T [facility] [facility] HEMATOCRIT 31.4(L) 37.0 - 53.0 % 12/15/2023 11:37 AM CDT [facility] MCV 82 80 - 100 fL 12/15/2023 11:37 AM CDT [facility] MCH 24.2(L) 26.0 - 34.0 pg 12/15/2023 11:37 AM T [facility] MCHC 29.6(L) 32.0 - 36.0 g/dL 12/15/2023 11:37 AM CDT [facility] RDW 15.4 11.5 - 15.5 % 12/15/2023 11:37 AM T [facility] PLATELET COUNT 461(H) 140 - 440 thou/cu mm 12/15/2023 11:37 AM CDT [facility] MPV 8.7 6.5 - 11.0 fL 12/15/2023 11:37 AM CDT [facility] NRBC 0.2 % 12/15/2023 11:37 AM CDT [facility] ABS NRBC 0.0 thou /cu mm 12/15/2023 11:37 AM CDT [facility] % NEUT 74.5 % 12/15/2023 11:37 AM CDT [facility] % LYMPH 10.4 % 12/15/2023 11:37 AM CDT [facility] % MONO 5.0 % 12/15/2023 11:37 AM CDT [facility] % EOS 6.3 % 12/15/2023 11:37 AM CDT [facility] % BASO 0.6 % 12/15/2023 11:37 AM CDT [facility] % IMMATURE GRAN (METAS,MYELOS,CO OS) 3.2 % 12/15/2023 11:37 AM CDT [facility] ABSOLUTE NEUTROPHILS 6.2 1.7 - 7.0 thou/cu mm 12/15/2023 11:37 AM CDT [facility] ABSOLUTE LYMPHOCYTES 0.9 0.9 - 2.9 thou/cu mm 12/15/2023 11:37 AM CDT [facility] ABSOLUTE MONOCYTES 0.4 <0.9 thou/cu mm 12/15/2023 11:37 AM CDT [facility] ABSOLUTE EOSINOPHILS 0.5(H) <0.5 thou/cu mm 12/15/2023 11:37 AM CDT [facility] ABSOLUTE BASOPHILS 0.1 <0.3 thou/cu mm 12/15/2023 11:37 AM T [facility] ABSOLUTE IMMATURE GRANULOCYTES(MET ,MYELOS,PROS) 0.3(H) <0.3 thou/cu mm 12/15/2023 11:37 AM T [facility] Blood BLOOD SPECIMEN / Unknown Non-Lab Venipuncture / Unknown 12/15/2023 11:00 AM CDT 12/15/2023 11:30 AM CDT Nando Sheets MD HEMATOLOGY [facility] [address] [place] [id number], * BLOOD CULTURE (12/13/2023 3:24 PM CDT) Only the most recent of2 resultswithin the time period is included. Pathologist [facility] CULTURE No Growth. 12/17/2023 3:46 PM CDT [facility] Blood BLOOD SPECIMEN / Unknown Butterfly / Unknown 12/13/2023 3:24 PM CDT 12/13/2023 3:29 PM CDT Ankur Javier MD MICROBIOLOGY Performing Organization Address City/[facility]/ZIP Co de Phone Number [facility] [address] [place] [address], [place] * CK TOTAL (12/13/2023 7:47 AM CDT) [facility] CK,TOTAL 46 39 - 308 IU/L 12/13/2023 2:05 PM CDT [facility] Blood BLOOD SPECIMEN / Unknown Venipuncture / Unknown 12/13/2023 7:47 AM CDT 12/13/2023 7:57 AM CDT Ankur Javier MD CHEMISTRY Performing Organization Address [facility] Co de Phone Number [facility] [address] [place] [address], [place] * LACTATE SCREEN VENOUS ISTAT W CARMONA (12/12/2023 12:52 PM CDT) [facility] LACTATE VENOUS SCREEN ISTAT <1.8 <=2.0 12/12/2023 12:54 PM CDT [facility] LACTATE SCREEN VENOUS POCT 0.9 <=2.0 12/12/2023 12:54 PM CDT [facility] Blood BLOOD SPECIMEN / Unknown 12/12/2023 12:52 PM CDT 12/12/2023 12:54 PM CDT Gab Escobar DO LABORATORY Performing Organization Address [facility] Co de Phone Number [facility] [address] [place], [place] [id number], [place] * EXTRA TUBE CARMONA ON ICE (12/12/2023 12:40 PM CDT) Blood BLOOD SPECIMEN / Unknown Venipuncture / Unknown 12/12/2023 12:40 PM CDT 12/12/2023 12:49 PM CDT Gab Escobar DO LABORATORY Performing Organization Address [facility]/ZIP Co de Phone Number [facility] [address] [place] [address], * (ABNORMAL) C-REACTIVE PROTEIN (12/12/2023 12:40 PM CDT) C-REACTIVE PROTEIN 7.2(H) <0.5 mg/dL 12/12/2023 1:19 PM CDT [facility] Blood BLOOD SPECIMEN / Unknown Venipuncture / Unknown 12/12/2023 12:40 PM CDT 12/12/2023 12:49 PM CDT Gab Escobar DO CHEMISTRY Performing Organization Address City/[facility]/ZIP Co de Phone Number [facility] [address] [place] [address], * (ABNORMAL) PSA, diagnostic AM (10/16/2023 6:21 AM CDT) PSA TOTAL (DIAGNOSTIC) 5.15(H) <4.00 ng/mL 10/16/2023 9:26 AM CDT [facility] Blood BLOOD SPECIMEN / Unknown Butterfly / Unknown 10/16/2023 6:21 AM CDT 10/16/2023 7:15 AM CDT Narrative [facility] - 10/16/2023 9:26 AM CDT The test method changed on 11/26/2022. If this test has been used for serial monitoring, rebaselining is recommended. Rebaselining consists of 2 measurements, collected 3-6 weeks apart. The Mir Elecsys total PSA assay is an electrochemiluminescence immunoassay ECLIA performed on the Mir Rahel e immunoassay analyzers. Values obtained with different assay methods may be different and cannot be used interchangeably. Stephanie Murray MD CHEMISTRY [facility] [address] [place] [address], [place] * CT ABDOMEN PELVIS UROGRAM WWO (10/15/2023 5:16 PM CDT) Anatomical Region Laterality Modality Abdomen, Pelvis, KIDNEYS, BLADDER Computed Tomography 10/15/2023 10:4 2 PM CDT Impressions 10/15/2023 10:42 PM CDT 1. No urolith or evidence of obstructive uropathy. No evidence for blood clots within the bladder lumen. 2. Markedly enlarged nodular prostate with protrusion into the base of the bladder. While this is not significantly changed compared to the prior exam, recommend with PSA to exclude underlying malignancy as a possible cause for the patient`s hematuria. 3. Moderate colonic stool burden. Please note that all CT scans at this facility use dose modulation, iterative reconstruction, and/or weight-based dosing when appropriate to reduce radiation dose to as low as reasonably achievable. Dictated by Giovanni Moyer MD @ 10/15/2023 10:42:58 PM (Electronically Signed) Narrative 10/15/2023 10:42 PM CDT For Patients: ??As a result of the Century Cures Act, medical imaging exams and procedure reports are released immediately into your electronic medical record. ??You may view this report before your referring provider. ??If you have questions, please contact your health care provider. INDICATION: Hematuria, gross/macroscopic new hematuria ? bladder clots or bleeding source. TECHNIQUE: CT abdomen and pelvis urogram without and with 100 cc Omnipaque 350 IV contrast. Contrast images were obtained in the combined nephrographic and delayed phases. COMPARISON: CT abdomen and pelvis 08/18/2022. FINDINGS: Kidneys: The unenhanced images demonstrate no kidney or ureteral stones. The kidneys are normal in caliber and demonstrate normal uptake and excretion of IV contrast. No masses. The renal collecting systems and ureters are symmetrical, normal in caliber, and without evidence of mass or filling defect. Urinary Bladder: The urinary bladder is normal in caliber and without evidence of mass, wall thickening, or inflammation. Markedly enlarged nodular prostate with protrusion into the base of the bladder. This is not significantly changed in appearance given differences in technique Other: Partially imaged small bilateral pleural effusions, [id number]-left. Mitral valve prosthesis. Lower sternal wound with likely overlying wound VAC. Abandoned epicardial pacing wire. Small hiatal hernia. Moderate colonic stool burden. No obstruction. The liver is unremarkable. Contracted gallbladder containing hyperdense material, likely either choleliths or biliary sludge. Splenic parenchymal volume loss, compatible with sequela of previous infarcts. Unremarkable pancreas and adrenal glands. No mass or adenopathy. Procedure Note Giovanni Moyer MD - 10/15/2023 For Patients: As a result of the Cures Act, medical imagingexams and procedure reports are released immediately into your electronicmedical record. You may view this report before your referring provider.If you have questions, please contact your health care provider. INDICATION: Hematuria, gross/macroscopic new hematuria ? bladder clots or bleeding source. TECHNIQUE: CT abdomen and pelvis urogram without and with 100 cc Omnipaque 350 IVcontrast. Contrast images were obtained in the combined nephrographic anddelayed phases. COMPARISON: CT abdomen and pelvis 08/18/2022. FINDINGS: Kidneys: The unenhanced images demonstrate no kidney or ureteral stones.The kidneys are normal in caliber and demonstrate normal uptake andexcretion of IV contrast. No masses. The renal collecting systems andureters are symmetrical, normal in caliber, and without evidence of massor filling defect. Urinary Bladder: The urinary bladder is normal in caliber and withoutevidence of mass, wall thickening, or inflammation. Markedly enlargednodular prostate with protrusion into the base of the bladder. This is notsignificantly changed in appearance given differences in technique Other: Partially imaged small bilateral pleural effusions,[id number]-left. Mitral valve prosthesis. Lower sternal wound withlikely overlying wound VAC. Abandoned epicardial pacing wire. Small hiatalhernia. Moderate colonic stool burden. No obstruction. The liver isunremarkable. Contracted gallbladder containing hyperdense material,likely either choleliths or biliary sludge. Splenic parenchymal volumeloss, compatible with sequela of previous infarcts. Unremarkable pancreasand adrenal glands. No mass or adenopathy. IMPRESSION: 1. No urolith or evidence of obstructive uropathy. No evidence for bloodclots within the bladder lumen. 2. Markedly enlarged nodular prostate with protrusion into the base of thebladder. While this is not significantly changed compared to the priorexam, recommend with PSA to exclude underlying malignancy as a possiblecause for the patient`s hematuria. 3. Moderate colonic stool burden. Please note that all CT scans at this facility use dose modulation,iterative reconstruction, and/or weight-based dosing when appropriate toreduce radiation dose to as low as reasonably achievable. Dictated by Giovanni Moyer MD @ 10/15/2023 10:42:58 PM (Electronically Signed) Stephanie Murray MD CT * (ABNORMAL) URINALYSIS MICROSCOPIC (10/15/2023 11:40 AM CDT) Pathologist [facility] RBC 26-50(A) 0-2, None Seen /HPF 10/15/2023 12:37 PM CDT [facility] WBC 0-2 0-2, 3-5, None Seen /HPF 10/15/2023 12:37 PM CDT [facility] BACTERIA None Seen None Seen, Rare, Few Bacteria/ HPF 10/15/2023 12:37 PM CDT [facility] EPITHELIAL CELLS None Seen None Seen, Few Epi/HPF 10/15/2023 12:37 PM CDT [facility] HYALINE CASTS 0-2 0-2, 3-5 /LPF 10/15/2023 12:37 PM CDT [facility] Urine URINE SPECIMEN / Unknown Non-Blood / Unknown 10/15/2023 11:40 AM CDT 10/15/2023 12:16 PM CDT Stephanie Murray MD URINE [facility] [address] [place] [address], * Urine culture - clean catch (10/15/2023 11:40 AM CDT) Pathologist [facility] CULTURE <10,000 CFU/mL multiple organisms 10/16/2023 11:29 AM CDT [facility] Urine URINE SPECIMEN / Unknown Non-Blood / Unknown 10/15/2023 11:40 AM CDT 10/15/2023 12:16 PM CDT Stephanie Murray MD MICROBIOLOGY [facility] [address] [place] [address], [place] * (ABNORMAL) Urinalysis TODAY (10/15/2023 11:40 AM CDT) COLOR Yellow Yellow Color 10/15/2023 12:37 PM CDT [facility] CLARITY Clear Clear Clarity 10/15/2023 12:37 PM CDT [facility] SPECIFIC GRAVITY,URINE 1.015 1.010, 1.015, 1.020, 1.025 10/15/2023 12:37 PM CDT [facility] PH,URINE 5.5 6.0, 7.0, 8.0, 5.5, 6.5, 7.5, 8.5 10/15/2023 12:37 PM CDT [facility] UROBILINOGEN, QUALITATIVE Normal Normal EU/dl 10/15/2023 12:37 PM CDT [facility] PROTEIN, URINE Negative Negative mg/dL 10/15/2023 12:37 PM T [facility] GLUCOSE, URINE Negative Negative mg/dL 10/15/2023 12:37 PM T [facility] KETONES,URINE Negative Negative mg/dL 10/15/2023 12:37 PM T [facility] BILIRUBIN,URI NE Negative Negative 10/15/2023 12:37 PM CDT [facility] OCCULT BLOOD,URINE Moderate(A) Negative 10/15/2023 12:37 PM T [facility] NITRITE Negative Negative 10/15/2023 12:37 PM T [facility] LEUKOCYTE ESTERASE Negative Negative 10/15/2023 12:37 PM CDT [facility]- NTRAL LABORATORY Urine URINE SPECIMEN / Unknown Non-Blood / Unknown 10/15/2023 11:40 AM CDT 10/15/2023 12:16 PM CDT Stephanie Murray MD URINE Performing Organization Address City/[facility]/ZIP Co de Phone Number [facility] [address] [place] [address], * EXTRA TUBE LAVENDER (10/15/2023 5:18 AM CDT) Blood BLOOD SPECIMEN / Unknown Non-Lab Venipuncture / Unknown 10/15/2023 5:18 AM CDT 10/15/2023 5:18 AM CDT Stephanie Murray MD LABORATORY Performing Organization Address [facility] Co de Phone Number [facility] [address] [place] [address], [place] * SCAN-CARDIAC STRIP (10/14/2023 1:28 AM CDT) Scanner OTHER * SCAN-CARDIAC STRIP (10/13/2023 1:51 AM CDT) Scanner OTHER * (ABNORMAL) Lipid Panel (07/22/2022 3:56 AM [employer]) CHOLESTEROL,TOTAL 97 mg/dL 023 4:47 AM [employer] [facility] Comment: Cholesterol, Total Reference Ranges Desirable <200 mg/dL Borderline 200-239 mg/dL High >=240 mg/dL TRIGLYCERIDES 297(H) <150 mg/dL 07/22/2022 4:47 AM [employer] [facility] HDL CHOLESTEROL 11(L) >40 mg/dL 3 4:47 AM [employer] [facility] NON-HDL CHOLESTEROL 86 <145 mg/dl 07/22/2022 4:47 AM [employer] [facility] CHOL/HDL RATIO 8.82(H) <4.50 07/22/2022 4:47 AM [employer] [facility] LDL CHOLESTEROL 27 <=130 mg/dL 07/22/2022 4:47 AM [employer] [facility] VLDL CHOLESTEROL 59 >30 mg/dL 07/22/19 4:47 AM [employer] [facility] PROVIDER ORDERED STATUS RANDOM 07/22/2022 4:47 AM [employer] [facility] Blood BLOOD SPECIMEN / Unknown Butterfly / Unknown 07/22/2022 3:56 AM [employer] 07/22/2022 4:11 AM [employer] Catracho Pedersen MD [facility]Y [facility] [address] [place] [address], * ANTI HCV (01/16/2022 3:28 PM CDT) HEPATITIS C ANTIBODY Non-React rowdy Non-React rowdy 01/17/2022 2:29 AM CDT [facility] Comment:Antibodies to HCV no t detected; does not exclude the possibility of exposure to HCV. Blood BLOOD SPECIMEN / Unknown Venipuncture / Unknown 01/16/2022 3:28 PM CDT 01/16/2022 3:31 PM CDT Ajay Pink MD SEND OUTS [facility] 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 Healthcare Directive 10/16/2022 12:00 AM * Full Code (Latest Code Status on File) Date Activated Date Inactivated Comments 12/30/2023 9:13 AM 01/05/2024 2:39 PM Question Answer Comments Code Status Discussion: Unable to Assess Preferences, Provider to review later * Full Code Date Activated Date Inactivated Comments 12/12/2023 3:36 PM 12/17/2023 2:15 PM Question Answer Comments Code Status Discussion: Reviewed Preferences * Full Code Date Activated Date Inactivated Comments 10/06/2023 3:54 AM 10/17/2023 4:09 PM Question Answer Comments Code Status Discussion: [...] Ventilation: No Restrictions Drug Protocol: No Restrictions Care Teams Relief Worker Relationship Specialty Start Date End Date Travis Lynch MD [address] [place] [address] [address] [place] [address] PCP - General Family Practice 11/05/23 Dorothy Powell AuD [address] [place] [id number] Audiology 11/14/17 Travis Lynch MD [address] [place] [id number] [facility] 11/22/22
[2024-01-13 11:27] LABS: Albumin* 4.8 g/dL (3.3-5.0)
[2024-01-13 11:30] LABS: Alanine Aminotransferase* 23 U/L (4-50); Alkaline Phosphatase* 72 U/L (40-150); Aspartate Amino Transferase* 35 U/L (12-35); Bilirubin Direct* 0.3 mg/dL (0.0-0.5); Bilirubin Total* 0.3 mg/dL (0.1-1.5); Total Protein* 8.2 g/dL (6.0-8.3)
[2024-01-13 11:36] LABS: Hemoglobin* 11.7 gm/dL (13.5-17.5)
== END 2024-01-13 09:35 | disposition home or self-care (01) ==
LOC: NPINS 09:34
PROVIDERS: Visit Provider Nurse Practitioner Gerontology
DX: R79.89 Other specified abnormal findings of blood chemistry (principal)
CPT/HCPCS: 80076; 85018

== ENCOUNTER 2024-12-31 22:41 | Emergency (ER) | payer BC, SELFPAY ==
[2024-12-31 22:52] VITALS: BP 123/61; PULSE 75; RESP 18; TEMP 36.7; O2SAT 95; BMI 29.4
--- NOTE | 2024-12-31 23:04 | ED.WOUNDLAC ---
HPI - Wound/Laceration General Time Seen by Provider: 23:04 Date Seen: 12/31/24 Chief Complaint: Laceration/Wound Stated Complaint: head lac Time Seen by Provider: 12/31/24 22:50 Source: patient and family Mode of arrival: ambulatory History of Present Illness HPI narrative: Ajay is a 64 yo male who presents the emergency department for evaluation of right eyebrow laceration. Patient presents today with his brother, patient at a [facility] at around 9:30 p.m. patient was walking right into a door frame. Patient denies any loss of consciousness, however is on chronic anticoagulation with Coumadin for heart valve. Patient reports right eyebrow laceration, denies any loss of consciousness, denies any headache, vision changes, changes in mental status, nausea, vomiting, weakness, paresthesias. No other injuries or complaints. Tetanus 08/16/2019. Last INR 12/07/2024 2.5. Related Data Home Medications ?Medication ?Instructions ?Recorded ?Confirmed clobetasol 0.05 % topical ointment topical 3XW 10/05/23 finasteride 5 mg tablet 5 mg PO DAILY 10/05/23 10/05/23 guaifenesin 600 mg tablet, 600 mg PO BID 10/05/23 10/05/23 extended release 12 hr (Mucus Relief ER) ketoconazole 2 % shampoo topical 2XW 10/05/23 magnesium oxide 400 mg (241.3 mg 400 mg PO DAILY 10/05/23 10/05/23 magnesium) tablet metoprolol tartrate 25 mg tablet 25 mg PO BID 10/05/23 10/05/23 omeprazole 20 mg capsule,delayed 20 mg PO DAILY 10/05/23 10/05/23 release oxybutynin chloride 5 mg 5 mg PO DAILY 10/05/23 10/05/23 tablet,extended release 24 hr paroxetine HCl 30 mg tablet 60 mg PO DAILY 10/05/23 10/05/23 polyethylene glycol 3350 17 17 g PO DAILY PRN constipation 10/05/23 10/05/23 gram/dose oral powder tamsulosin 0.4 mg capsule 0.4 mg PO DAILY 10/05/23 10/05/23 torsemide 10 mg tablet 10 mg PO DAILY 10/05/23 10/05/23 torsemide 20 mg tablet 20 mg PO DAILY 10/05/23 10/05/23 warfarin 1 mg tablet 1 mg PO 10/05/23 warfarin 2.5 mg tablet 2.5 mg PO DAILY 10/05/23 10/05/23 warfarin 3 mg tablet mg PO 10/05/23 warfarin 4 mg tablet 4 mg PO DAILY 10/05/23 10/05/23 warfarin 5 mg tablet 5 mg PO DAILY 10/05/23 10/05/23 Allergies Allergy/AdvReac Type Severity Reaction Status Date / Time No Known Drug Allergies Allergy Verified 12/31/24 22:54 Review of Systems Narrative: Past medical history, past surgical history, medications, allergies, family history, and social history were reviewed with the patient. No additional pertinent items. A medically appropriate review of systems was performed with pertinent positives and negatives noted in HPI, all other systems negative. [facility] Medical History (Updated 01/01/25 @ 00:35 by Jose M Rod MD) CVA (cerebral vascular accident) ?I63.9 - Cerebral infarction, unspecified (ICD-10) Cognitive impairment ?R41.89 - Other symptoms and signs involving cognitive functions and awareness (ICD-10) Splenic infarction ?D73.5 - Infarction of spleen (ICD-10) Acute bacterial endocarditis ?I33.0 - Acute and subacute infective endocarditis (ICD-10) Pneumomediastinum ?J98.2 - Interstitial emphysema (ICD-10) Abscess of sternal region ?L02.213 - Cutaneous abscess of chest wall (ICD-10) Chronic osteomyelitis ?M86.60 - Other chronic osteomyelitis, unspecified site (ICD-10) Psoriasis ?L40.9 - Psoriasis, unspecified (ICD-10) Typical atrial flutter ?I48.3 - Typical atrial flutter (ICD-10) Chronic right-sided heart failure ?I50.812 - Chronic right heart failure (ICD-10) Shock liver ?K72.00 - Acute and subacute hepatic failure without coma (ICD-10) Social anxiety disorder ?F40.10 - Social phobia, unspecified (ICD-10) Prostatitis ?N41.9 - Inflammatory disease of prostate, unspecified (ICD-10) MSSA (methicillin susceptible Staphylococcus aureus) ?A49.01 - Methicillin susceptible Staphylococcus aureus infection, unspecified site (ICD-10) Coag negative Staphylococcus bacteremia ?R78.81 - Bacteremia (ICD-10) ?B95.7 - Other staphylococcus as the cause of diseases classified elsewhere (ICD-10) BPH without urinary obstruction ?N40.0 - Benign prostatic hyperplasia without lower urinary tract symptoms (ICD-10) Autism spectrum disorder ?F84.0 - Autistic disorder (ICD-10) Surgical History (Updated 12/31/24 @ 23:10 by Bandar Denise RN) H/O wisdom tooth extraction ?K08.409 - Partial loss of teeth, unspecified cause, unspecified class (ICD-10) History of tonsillectomy ?Z90.89 - Acquired absence of other organs (ICD-10) H/O prostate biopsy ?Z98.890 - Other specified postprocedural states (ICD-10) History of mitral valve replacement ?Z95.2 - Presence of prosthetic heart valve (ICD-10) Social History Smoking Status: Never smoker Do you use any of these nicotine containing products: None Second hand tobacco smoke exposure: No How often do you have a drink containing alcohol: never How often do you have six or more drinks on one occasion: Never AUDIT-C Alcohol total score: 0 Non-prescribed substance use: denies use service: No Exam Narrative: Exam Narrative: General: Afebrile, no acute distress HEENT: Normocephalic, ~4cm right eyebrow laceration with no active bleeding, PERRL, EOMI, conjunctiva normal. MMM Neck: non-tender, supple, no midline TTP Cardio: regular rate. regular rhythm Resp: Normal work of breathing, no respiratory distress, lungs clear bilaterally, no wheezing, rhonchi, rales Chest/Back: no visual signs of trauma, no midline tenderness, no CVA tenderness Abdomen: soft, non distension, no tenderness, no peritoneal signs Neuro: alert and fully oriented. CN II-XII intact. Normal strength and sensation in all extremities. MSK: no deformities. Normal range of motion Integumentary/Skin: no rash visualized, normal color Psych: normal affect, normal behavior Const: Vital Signs, click to edit/add: Vital Signs - 24 hr 12/31/24 22:52 Temperature 98.0 F Pulse Rate [Right Pulse Oximeter] 75 Respiratory Rate 18 Blood Pressure [Ri ght Upper Arm] 123/61 Pulse Oximetry 95 Oxygen Delivery Me thod Room Air Course Vital Signs Vital signs: Initial Vital Signs Temperature 98.0 F 12/31/24 22:52 Temperature Source Temporal Artery Scan 12/31/24 22:52 Pulse Rate 75 12/31/24 22:52 Respiratory Rate 18 12/31/24 22:52 Blood Pressure 123/61 12/31/24 22:52 Blood Pressure Mean 81 12/31/24 22:52 Blood Pressure Position Supine 12/31/24 22:52 Pulse Oximetry 95 12/31/24 22:52 Oxygen Delivery Method Room Air 12/31/24 22:52 Vital Signs Temperature 98.0 F 12/31/24 22:52 Pulse Rate 75 12/31/24 22:52 Respiratory Rate 18 12/31/24 22:52 Blood Pressure 123/61 12/31/24 22:52 Pulse Oximetry 95 12/31/24 22:52 Oxygen Delivery Method Room Air 12/31/24 22:52 Temperature 98.0 F 12/31/24 22:52 Pulse Rate 75 12/31/24 22:52 Respiratory Rate 18 12/31/24 22:52 Blood Pressure 123/61 12/31/24 22:52 Pulse Oximetry 95 12/31/24 22:52 Oxygen Delivery Method Room Air 12/31/24 22:52 Medications Administered Medications: Generic Name Dose Route Start Last Admin Trade Name Freq PRN Reason Stop Dose Admin Lidocaine/Epinephrine/Tetracaine 3 ml 12/31/24 23:16 12/31/24 23:23 Lidocaine/Epinep/Tetracaine 3 Ml Gel..Ml. TOPICAL 12/31/24 23:17 3 ml ONCE ONE Administration MDM - Wound/Laceration MDM Narrative Medical decision making narrative: Ajay is a 64 yo male who presents the emergency department for evaluation of right eyebrow laceration. Upon arrival patient is nontoxic appearing, afebrile, no distress. Patient here with right eyebrow laceration after running into a door frame. No loss of consciousness however patient is on chronic anticoagulation with warfarin, last INR was 2.5. I discussed with patient and family will proceed with CT imaging. I personally reviewed and interpreted CT of the head which is unremarkable with no acute intracranial hemorrhage. Wound was irrigated, explored, and closed with a total of 7 absorbable sutures. Patient tolerated procedure well. Plan for discharge with continued supportive care. Return precautions discussed. Patient and family understand agrees the plan. Medical Records Attestation: I reviewed the patient's medical records. Discharge Plan Discharge Clinical Impression: Eyebrow laceration Patient Disposition: Home, Self-Care Condition: Stable Additional Instructions: Please follow-up with your primary care providers in the next 3-5 days for further evaluation and follow-up. Please call discussion appointment. Please take Tylenol as needed for pain. Please keep wound clean and dry, you may shower as normal and just let the water and soap run over the wound. Please continue your own medications. Please return to the emergency department if you develop altered mental status, severe headache, persistent vomiting, weakness, or worsening symptoms. It was a pleasure taking care of you today. We hope you feel better soon. Prescriptions: No Action ketoconazole 2 % shampoo topical 2XW torsemide 20 mg tablet 20 mg PO DAILY torsemide 10 mg tablet 10 mg PO DAILY warfarin 2.5 mg tablet 2.5 mg PO DAILY warfarin 4 mg tablet 4 mg PO DAILY warfarin 3 mg tablet PO magnesium oxide 400 mg (241.3 mg magnesium) tablet 400 mg PO DAILY tamsulosin 0.4 mg capsule 0.4 mg PO DAILY paroxetine HCl 30 mg tablet 60 mg PO DAILY warfarin 5 mg tablet 5 mg PO DAILY oxybutynin chloride 5 mg tablet extended release 24hr 5 mg PO DAILY omeprazole 20 mg capsule,delayed release(DR/EC) 20 mg PO DAILY clobetasol 0.05 % ointment topical 3XW warfarin 1 mg tablet 1 mg PO polyethylene glycol 3350 17 gram/dose powder 17 g PO DAILY PRN (Reason: constipation) finasteride 5 mg tablet 5 mg PO DAILY metoprolol tartrate 25 mg tablet 25 mg PO BID guaifenesin [Mucus Relief ER] 600 mg tablet extended release 12hr 600 mg PO BID Follow Up/Referrals: Provider,Not a Local [Non-Staff, Family Practice] Stand Alone Forms: [facility] Info Instructions Procedures Laceration Laceration 1: Pre procedure diagnosis: Right eyebrow laceration Post procedure diagnosis: Right eyebrow laceration Written consent by: patient Verification/time out: correct patient, correct site, correct procedure and time out performed Name of person performing procedure: jose m rod Site: face (Right eyebrow) Size (cm): 4 Description: linear Depth: simple, single layer Local Anesthetic: other anesthetic (Let) Pre-repair: wound explored and irrigated extensively Skin layer closed with: Vicryl (6-0) Number of sutures: 7 Technique: simple, interrupted Conclusion: patient tolerated procedure
--- NOTE | 2024-12-31 23:16 | CRLHL7_ITS ---
For Patients: As a result of the Century Cures Act, medical imaging exams and procedure reports are released immediately into your electronic medical record. You may view this report before your referring provider. If you have questions, please contact your health care provider. Indication: Trauma Technique: Noncontrast CT through the head with multiplanar reformats Comparison: CT head performed 07/21/2022 Findings: Brain: No acute hemorrhage. No acute infarct. No significant mass effect or midline shift. No gross evidence of a mass lesion or cerebral edema. Mild chronic microvascular ischemic disease. Moderate global parenchymal volume loss. There is an interval new but chronic appearing left parieto-occipital infarct. Ventricles: No acute abnormality appreciated. Orbits, sinuses, mastoids: No acute abnormality appreciated. Trace sinus disease. Calvarium and soft tissues: No acute abnormality appreciated. Impression: No acute abnormality appreciated. Please note that all CT scans at this facility use dose modulation, iterative reconstruction, and/or weight-based dosing when appropriate to reduce radiation dose to as low as reasonably achievable. Dictated by Ashok Almeida MD @ 12/31/2024 11:39:19 PM (Electronically Signed)
[2024-12-31] MEDS: LIDOCAINE/EPINEP/TETRACAINE 3 ML GEL..ML. TOPICAL (23:23)
[2025-01-01 01:17] VITALS: BP 118/65; PULSE 78; RESP 18; TEMP 36.7; O2SAT 95
[2025-01-01 01:18] VITALS: BP 118/65; PULSE 78; RESP 18; TEMP 36.7
== END 2025-01-01 01:18 | disposition home or self-care (01) ==
PROVIDERS: Emergency Provider Emergency Medicine; PCP Family Medicine
DX: S01.111A Laceration without foreign body of right eyelid and periocular area, initial encounter (principal); W22.01XA Walked into wall, initial encounter
CPT/HCPCS: 12013; 70450; 99283; 99285